=== PATIENT | male | born 1930 | race Caucasian/White ===

== ENCOUNTER 2017-12-26 12:20 | Emergency (ER) | payer OTHER ==
[~2017-12-26] VITALS: Ht 210.8 cm; Wt 83.9 kg
[~2017-12-26 12:20] MED LIST: ACIDOPHILUS1 EAC1 PO; ASA325 PO; CO Q-1030 MG PO; COREG3.125 MG PO; COUMADIN5 MG PO; DOXAZOSIN MESYLA2 MG PO; FISH OIL 1,2001 EACH PO; FUROSEMIDE40 MG PO; KAVA KAVA PO; KLOR-CON 1010 MEQ PO; LOSARTAN POTASS50 MG PO; MAGNESIUM500 MG PO; MECLIZINE HCL12.5 MG PO; MULTIVITAMIN PO; NRC7.5T PO; PEPCID20 MG PO; SUPER B COMPLE150 MG PO; VERAPAMIL ER240 M1 PO; VITAMIN B12 PO; WARFARIN SODIUM1 MG PO; WARFARIN SODIUM4 MG PO; WARFARIN SODIUM5 GM PO; [UNRECOGNIZED DRUG - OTHER] PO
--- OUTSIDE RECORDS SUMMARY | 2017-12-26 12:24 | XMS REPORT | CCD ---
Author Author [facility] Organization [facility] Address Unknown Phone Unavailable Care Team Providers Care Fish Icer Name Role Phone Clark Pete CP Allergies, Adverse Reactions, Alerts Substance Reaction Status NKDA Active Problem List Condition Effective Dates Status BPH Active Congestive heart failure Active HTN - Hypertension Active Pleural effusion Active Vital Signs Most recent to oldest [Reference Range]: 1 Height 182.88 cm (11/25/2011 22:23:00) Weight 2.585 kg (11/25/2011 22:23:00)
--- OUTSIDE RECORDS SUMMARY | 2017-12-26 12:24 | XMS REPORT | Summary of Care ---
Author Organization Unknown Address Unknown Phone Unavailable Encounter HQ Sarah_la(ROSA) [id number] Date(s): 11/15/14 - 11/15/[address] Discharge Disposition: Home Physician Attending: Sherley Fabian MD Physician_Referring: Sherley Fabian MD Vital Signs Most recent to 1 oldest [Reference Range]: Height 180.34 cm (11/15/14 9:20 AM) Weight 85 kg (11/15/14 9:20 AM) Body Mass Index 26.14 m2 (11/15/14 9:20 AM) Problem List Condition Effective Dates Status Health Status Informant BPH(Confirmed) Active Congestive heart Active failure(Confirmed) HTN - Active Hypertension(Confirm ed) Pleural Active effusion(Confirmed) Allergies, Adverse Reactions, Alerts Substance Reaction Severity Status NKDA Active Medications No data available for this section Results No data available for this section Immunizations No data available for this section Procedures No data available for this section Social History No data available for this section Assessment and Plan No data available for this section
--- OUTSIDE RECORDS SUMMARY | 2017-12-26 12:24 | XMS REPORT | CCD ---
Author Author [facility] Organization [facility] Address Unknown Phone Unavailable Care Team Providers Care Manager Credit Risk Name Role Phone Lenny Castillo CP Allergies, Adverse Reactions, Alerts Substance Reaction Status NKDA Active Problem List Condition Effective Dates Status BPH Active Congestive heart failure Active HTN - Hypertension Active Pleural effusion Active Medications Medication Instructions Start Date End Date Status Saline Flush 0.9% 5 ml, Route: IVP, Drug Form: INJ, 10/09/20112011 Discontinued PRN, PRN Line Flush, Start date: 10/09/11 22:57:00, Duration: 24 hr, Stop date: 10/10/11 22:56:00 DuoNeb inhalation 3 ml, Route: INHALATION, Drug Form: 10/10/20112011 Discontinued solution SOLN, RQID, Start date: 10/10/11 15:00:00, Duration: 30 day, Stop date: 11/09/11 11:00:00 losartan 100 mg, 2 tab, Route: PO, Drug 10/11/2011 10/11/2011 Discontinued form: TAB, Daily, Start date: 10/11/11 9:00:00, Duration: 30 day, Stop date: 11/09/11 9:00:00 hydrOXYzine pamoate 25 mg, 1 cap, Route: PO, Drug form: 10/10/201110/10 Discontinued 25 mg oral capsule CAP, Daily, PRN Anxiety, Start date: 10/10/11 12:03:00, Duration: 30 day, Stop date: 11/09/11 12:02:00 warfarin 5 mg, 1 tab, Route: PO, Drug form: 10/10/2011 10/11/2011 Discontinued TAB, Q5PM, Start date: 10/10/11 17:00:00, Duration: 30 day, Stop date: 11/08/11 17:00:00 Prinivil 5 mg, 1 tab, Route: PO, Drug form: 10/11/2011 10/10/2011 Canceled TAB, Daily, Start date: 10/11/11 9:00:00, Duration: 30 day, Stop date: 11/09/11 9:00:00 metoprolol 25 mg, 1 tab, Route: PO, Drug form: 10/11/2011 10/11/2011 Discontinued ERTAB, Daily, Start date: 10/11/11 9:00:00, Duration: 30 day, Stop date: 11/09/11 9:00:00 K-Dur 10 10 mEq, 1 tab, Route: PO, Drug 10/11/2011 10/11/2011 Discontinued form: ERTAB, Daily, Start date: 10/11/11 9:00:00, Duration: 30 day, Stop date: 11/09/11 9:00:00 Lasix 40 mg, 4 mL, Route: IV, Drug form: 10/11/2011 10/11/2011 Discontinued INJ, Daily, Start date: 10/11/11 9:00:00, Duration: 30 day, Stop date: 11/09/11 9:00:00 warfarin 5 mg oral 5 mg, 1 tab, PO, Daily, 30 tab, 10/10/2011 Ordered tablet Substitution Allowed, TAB losartan 100 mg oral 100 mg, 1 tab, PO, Daily, 30 tab, 10/10/2011 Ordered tablet Substitution Allowed, TAB levocetirizine 5 mg Substitution Allowed, Maintenance 10/10/2011 Ordered oral tablet Lasix 40 mg, Route: IVP, Drug form: INJ, 10/10/2011 10/10/2011 Completed ONCE, Priority: STAT, Start date: 10/10/11 0:46:00, Stop date: 10/10/11 0:46:00 verapamil 240 mg 240 mg, 1 cap, PO, Daily, 30 cap, 10/10/20112011 Discontinued oral capsule, Substitution Allowed extended release hydrOXYzine pamoate 25 mg, 1 cap, PO, Daily, PRN, 40 10/10/2011 Ordered 25 mg oral capsule cap, Anxiety, Substitution Allowed, CAP clonidine 0.1 mg 0.1 mg, 1 tab, PO, BID, 60 tab, 10/10/2011 Ordered oral tablet Substitution Allowed, TAB Lasix 40 mg oral 40 mg, 1 tab, PO, Daily, 30 tab, 10/11/2011 Ordered tablet Substitution Allowed, TAB Metoprolol Succinate 25 mg, 1 tab, PO, Daily, 30 tab, 10/11/2011 Ordered ER 25 mg oral Substitution Allowed, ERTAB tablet, extended release acetaminophen 650 mg, 2 tab, Route: PO, Drug 10/10/2011 10/11/2011 Discontinued form: TAB, Q4H, PRN Pain/Fever, Start date: 10/10/11 2:24:00, Duration: 30 day, Stop date: 11/09/11 2:23:00 nitroglycerin 0.4 mg 0.4 mg, 1 tab, Route: SL, Drug 10/10/20112011 Discontinued sublingual tablet form: TAB, Q5Min, PRN Chest Pain, Start date: 10/10/11 2:01:00, Duration: 30 day, Stop date: 11/09/11 2:00:00 atropine 0.5 mg, 5 mL, Route: IVP, Drug 10/10/2011 10/11/2011 Discontinued form: INJ, PRN, PRN Bradycardia, Start date: 10/10/11 2:01:00, Duration: 30 day, Stop date: 11/09/11 2:00:00 Vital Signs Most recent to oldest [Reference Range]: 1 2 3 Height 180.34 cm (10/10/2011 02:21:00) 180.34 cm (10/09/2011 20:27:00) Current Weight 89.636 kg (10/10/2011 03:43:00) Temperature Oral [96.4-99.1 DegF] 97.9 DegF (10/11/2011 12:00:00) 97.6 DegF (10/11/2011 08:00:00) 97.8 DegF (10/11/2011 04:00:00) Systolic Blood Pressure [90-140 mmHg] 143 mmHg *HI* (10/11/2011 12:00:00) 171 mmHg *HI* (10/11/2011 09:00:00) 171 mmHg *HI* (10/11/2011 08:00:00) Diastolic Blood Pressure [60-90 mmHg] 68 mmHg (10/11/2011 12:00:00) 93 mmHg *HI* (10/11/2011 09:00:00) 104 mmHg *HI* (10/11/2011 08:00:00) Respiratory Rate [14-20 BRMIN] 18 BRMIN (10/11/2011 12:00:00) 20 BRMIN (10/11/2011 08:00:00) 18 BRMIN (10/11/2011 04:00:00) Peripheral Pulse Rate [60-100 bpm] 59 bpm *LOW* (10/11/2011 12:00:00) 76 bpm (10/11/2011 09:00:00) 72 bpm (10/11/2011 08:00:00) Weight 90.483 kg (10/10/2011 02:21:00) 97.727 kg (10/09/2011 20:27:00) Results CHEMISTRY Most recent to oldest [Reference Range]: 1 2 Sodium Lvl [135-145 mEq/L] 143 mEq/L (10/11/2011 06:13:00) 142 mEq/L (10/09/2011 22:58:00) Potassium Lvl [3.5-5.1 mEq/L] 4.1 mEq/L (10/11/2011 06:13:00) 4.0 mEq/L (10/09/2011 22:58:00) Chloride Lvl [95-109 mEq/L] 108 mEq/L (10/11/2011 06:13:00) 110 mEq/L *HI* (10/09/2011 22:58:00) CO2 [24-32 mEq/L] 25 mEq/L (10/11/2011 06:13:00) 23 mEq/L *LOW* (10/09/2011 22:58:00) AGAP [10.0-20.0 mEq/L] 14.1 mEq/L (10/11/2011 06:13:00) 13.0 mEq/L (10/09/2011 22:58:00) Creatinine Lvl [0.5-1.4 mg/dL] 1.1 mg/dL (10/11/2011 06:13:00) 1.1 mg/dL (10/09/2011 22:58:00) eGFR >60 1 *NA* (10/11/2011 06:13:00) BUN [7-22 mg/dL] 16 mg/dL (10/11/2011 06:13:00) 16 mg/dL (10/09/2011 22:58:00) B/C Ratio [6-25] 15 (10/09/2011 22:58:00) Glucose Lvl 90 mg/dL 2 *NA* (10/11/2011 06:13:00) 89 mg/dL 3 *NA* (10/09/2011 22:58:00) Total Protein [6.4-8.4 g/dL] 6.2 g/dL *LOW* (10/09/2011 22:58:00) Albumin Lvl [3.5-5.0 g/dL] 3.4 g/dL *LOW* (10/09/2011 22:58:00) Globulin [2.0-4.0 g/dL] 2.8 g/dL (10/09/2011 22:58:00) A/G Ratio [0.7-1.6] 1.2 (10/09/2011 22:58:00) Calcium Lvl [8.5-10.5 mg/dL] 8.8 mg/dL (10/11/2011 06:13:00) 8.5 mg/dL (10/09/2011 22:58:00) ALT [0-65 U/L] 64 U/L (10/09/2011 22:58:00) AST [0-37 U/L] 33 U/L (10/09/2011 22:58:00) Alk Phos [39-136 U/L] 80 U/L (10/09/2011 22:58:00) Bili Total [0.2-1.3 mg/dL] 0.9 mg/dL (10/09/2011 22:58:00) Total CK [12-191 U/L] 97 U/L (10/09/2011 22:58:00) CK MB [0.5-3.6 ng/mL] 1.5 ng/mL (10/09/2011 22:58:00) CK MB Index [0.0-2.5] 1.5 (10/09/2011 22:58:00) Troponin-I [0.00-0.40 ng/mL] <0.02 ng/mL (10/09/2011 22:58:00) BNP [<=100 pg/mL] 698 pg/mL 4 *HI* (10/11/2011 06:13:00) 681 pg/mL 5 *HI* (10/09/2011 22:58:00) 1Result Comment: Expected eGFR for >20 yr. age group: >=60 ml/min/1.73 sq m The eGFR calculation is not valid in or for persons < 18 years of age. From National Kidney Disease Education Program (NKDEP) 2Interpretive Data: Reference Ranges : 0 - 7 days : 41 - 90 mg/dL7 days - 150 yrs : 70 - 99 mg/dL (fasting), based on the clinical recommendations of the [place] [employer]. 3Interpretive Data: Reference Ranges : 0 - 7 days : 41 - 90 mg/dL7 days - 150 yrs : 70 - 99 mg/dL (fasting), based on the clinical recommendations of the [place] [employer]. 4Interpretive Data: Elevated results are in line with increasing severity of congestive heart failure. Minor elevations between 100 and 300 may be seen with Myocardial Ischemia, Sodium retaining drugs, and compensated/treated heart failure. 5Interpretive Data: Elevated results are in line with increasing severity of congestive heart failure. Minor elevations between 100 and 300 may be seen with Myocardial Ischemia, Sodium retaining drugs, and compensated/treated heart failure. HEMATOLOGY Most recent to oldest [Reference Range]: 1 2 WBC [3.7-10.4 K/CMM] 6.6 K/CMM (10/11/2011 06:13:00) 5.1 K/CMM (10/09/2011 22:58:00) RBC [4.70-6.10 M/CMM] 4.41 M/CMM *LOW* (10/11/2011 06:13:00) 3.98 M/CMM *LOW* (10/09/2011 22:58:00) Hgb [14.0-18.0 g/dL] 13.7 g/dL *LOW* (10/11/2011 06:13:00) 12.2 g/dL *LOW* (10/09/2011 22:58:00) Hct [42.0-54.0 %] 40.4 % *LOW* (10/11/2011 06:13:00) 36.5 % *LOW* (10/09/2011 22:58:00) MCV [80.0-94.0 fL] 91.7 fL (10/11/2011 06:13:00) 91.8 fL (10/09/2011 22:58:00) MCH [27.0-31.0 pg] 31.1 pg *HI* (10/11/2011 06:13:00) 30.7 pg (10/09/2011 22:58:00) MCHC [32.0-36.0 g/dL] 33.9 g/dL (10/11/2011 06:13:00) 33.4 g/dL (10/09/2011 22:58:00) RDW [11.5-14.5 %] 13.6 % (10/11/2011 06:13:00) 13.4 % (10/09/2011 22:58:00) Platelet [133-450 K/CMM] 135 K/CMM (10/11/2011 06:13:00) 113 K/CMM *LOW* (10/09/2011 22:58:00) MPV [7.4-10.4 fL] 10.4 fL (10/11/2011 06:13:00) 10.2 fL (10/09/2011 22:58:00) Segs [45.0-75.0 %] 56.6 % (10/11/2011 06:13:00) 55.4 % (10/09/2011 22:58:00) Lymphocytes [20.0-40.0 %] 34.7 % (10/11/2011 06:13:00) 33.1 % (10/09/2011 22:58:00) Monocytes [2.0-12.0 %] 5.7 % (10/11/2011 06:13:00) 7.3 % (10/09/2011 22:58:00) Eosinophils [0.0-4.0 %] 2.7 % (10/11/2011 06:13:00) 3.7 % (10/09/2011 22:58:00) Basophils [0.0-1.0 %] 0.3 % (10/11/2011 06:13:00) 0.5 % (10/09/2011 22:58:00) Segs-Bands # [1.5-8.1 K/CMM] 3.7 K/CMM (10/11/2011 06:13:00) 2.8 K/CMM (10/09/2011 22:58:00) Lymphocytes # [1.0-5.5 K/CMM] 2.3 K/CMM (10/11/2011 06:13:00) 1.7 K/CMM (10/09/2011 22:58:00) Monocytes # [0.0-0.8 K/CMM] 0.4 K/CMM (10/11/2011 06:13:00) 0.4 K/CMM (10/09/2011 22:58:00) Eosinophils # [0.0-0.5 K/CMM] 0.2 K/CMM (10/11/2011 06:13:00) 0.2 K/CMM (10/09/2011 22:58:00) Basophils # [0.0-0.2 K/CMM] 0.0 K/CMM (10/11/2011 06:13:00) 0.0 K/CMM (10/09/2011 22:58:00) PT [12.0-14.7 seconds] 23.6 seconds *HI* (10/11/2011 06:13:00) 22.4 seconds *HI* (10/09/2011 22:58:00) INR [0.85-1.17] 2.13 6 *HI* (10/11/2011 06:13:00) 1.99 7 *HI* (10/09/2011 22:58:00) PTT [22.9-35.8 seconds] 32.8 seconds 8 (10/09/2011 22:58:00) 6Interpretive Data: RECOMMENDED RANGES FOR PROTIME INR: 2.0-3.0 for most medical and surgical thromboembolic states. 2.5-3.5 for artificial heart valves and recurrent embolism.INR SHOULD BE USED ONLY FOR PATIENTS ON STABLE ANTICOAGULANT THERAPY. 7Interpretive Data: RECOMMENDED RANGES FOR PROTIME INR: 2.0-3.0 for most medical and surgical thromboembolic states. 2.5-3.5 for artificial heart valves and recurrent embolism.INR SHOULD BE USED ONLY FOR PATIENTS ON STABLE ANTICOAGULANT THERAPY. 8Interpretive Data: Heparin Therapeutic Range: 57 - 92 Seconds
--- OUTSIDE RECORDS SUMMARY | 2017-12-26 12:24 | XMS REPORT | Summary of Care ---
Author Author [facility] Organization [facility] Address Unknown Phone Unavailable Encounter JOAQUÍN Rodney(ROSA) [id number] Date(s): 04/15/15 - 04/15/15 [facility] [address] [place] [address] Discharge Disposition: Home Attending Physician: Luke Back MD Referring Physician: Luke Back MD Vital Signs Most recent to 1 oldest [Reference Range]: Height 180.34 cm (04/15/15 12:23 PM) Most recent to 1 oldest [Reference Range]: Weight 87.727 kg (04/15/15 12:23 PM) Most recent to 1 oldest [Reference Range]: Body Mass Index 26.97 m2 (04/15/15 12:23 PM) Problem List Condition Effective Dates Status Health Status Informant AF - Atrial Resolved fibrillation(Confirm ed) BPH(Confirmed) Active Cardiac Resolved arrest(Confirmed) CHF (congestive Resolved heart failure)(Confirmed) Congestive heart Active failure(Confirmed) Diastolic heart Resolved failure(Confirmed) HTN - Active Hypertension(Confirm ed) Pleural Active effusion(Confirmed) VT - Ventricular Resolved tachycardia(Confirme d) Allergies, Adverse Reactions, Alerts Substance Reaction Severity Status NKDA Active Medications No data available for this section Results No data available for this section Immunizations No data available for this section Procedures No data available for this section Social History Social History Type Response Smoking Status Never smoker; Exposure to Tobacco Smoke None; Cigarette Smoking Last 365 Days Unable to obtain; Reg Smoking Cessation Counseling No Assessment and Plan No data available for this section
--- OUTSIDE RECORDS SUMMARY | 2017-12-26 12:24 | XMS REPORT | Summary of Care ---
Author Author [facility] Organization [facility] Address Unknown Phone Unavailable Encounter JOAQUÍN Rodney(ROSA) [id number] Date(s): 02/11/15 - 02/11/[address] Discharge Disposition: Home Attending Physician: Riley Rowe MD Referring Physician: Riley Rowe MD Vital Signs Most recent to 1 oldest [Reference Range]: Height 182.88 cm (02/11/15 12:54 PM) Most recent to 1 oldest [Reference Range]: Weight 86.364 kg (02/11/15 12:54 PM) Most recent to 1 oldest [Reference Range]: Body Mass Index 25.82 m2 (02/11/15 12:54 PM) Problem List Condition Effective Dates Status Health Status Informant BPH(Confirmed) Active Congestive heart Active failure(Confirmed) HTN - Active Hypertension(Confirm ed) Pleural Active effusion(Confirmed) Allergies, Adverse Reactions, Alerts Substance Reaction Severity Status NKDA Active Medications No data available for this section Results HEMATOLOGY Most recent to 1 oldest [Reference Range]: PT [12.0-14.7 39.3 seconds seconds] *HI* (02/11/15 1:35 PM) INR [0.85-1.17] 3.83 *HI* (02/11/15 1:35 PM) Immunizations No data available for this section Procedures No data available for this section Social History No data available for this section Assessment and Plan No data available for this section
--- OUTSIDE RECORDS SUMMARY | 2017-12-26 12:24 | XMS REPORT | Summary of Care ---
Author Author [facility] Organization [facility] Address Unknown Phone Unavailable Encounter JOAQUÍN Rdoney(ROSA) [id number] Date(s): 05/12/16 - 05/12/16 [facility] [address] Discharge Disposition: Home or Self Care Attending Physician: Riley Rowe MD Referring Physician: Riley Rowe MD Vital Signs Most recent to 1 oldest [Reference Range]: Height 182.88 cm (05/12/16 8:59 AM) Weight 87.273 kg (05/12/16 8:59 AM) Body Mass Index 26.09 m2 (05/12/16 8:59 AM) Problem List Condition Effective Dates Status [...]
--- OUTSIDE RECORDS SUMMARY | 2017-12-26 12:24 | XMS REPORT | Summary of Care ---
Author Author [facility] Address Unknown Phone Unavailable Encounter HQ Ronel(FIN) [id number] Date(s): 08/27/16 - 08/27/16 [facility] [address], [address] [place] [phone] Discharge Disposition: Home or Self Care Attending Physician: Tayler Muro MD Vital Signs No data available for this section Problem List Condition Effective Dates Status Health Status Informant AF - Atrial Active fibrillation(Confirm ed) BPH(Confirmed) Active Cardiac Resolved arrest(Confirmed) CHF (congestive Resolved heart failure)(Confirmed) Congestive heart Active failure(Confirmed) Diastolic heart Resolved failure(Confirmed) HTN - Active Hypertension(Confirm ed) Pleural Active effusion(Confirmed) VT - Ventricular Resolved tachycardia(Confirme d) Allergies, Adverse Reactions, Alerts Substance Reaction Severity Status NKDA Active Medications No data available for this section Results No data available for this section Immunizations Given and Recorded Vaccine Date Status Refusal Reason pneumococcal 13-valent vaccine 06/11/16 Given Procedures Procedure Date Related Diagnosis Body Site TURP - Transurethral resection of prostate Social History Social History Type Response Smoking Status Never smoker; Exposure to Tobacco Smoke None; Cigarette Smoking Last 365 Days Unable to obtain; Reg Smoking Cessation Counseling No Assessment and Plan No data available for this section
--- OUTSIDE RECORDS SUMMARY | 2017-12-26 12:24 | XMS REPORT | Summary of Care ---
Author Author [facility] Outpatient Imaging [facility] Outpatient Imaging [facility] Address Unknown Phone Unavailable Encounter HQ Ronel(FIN) [id number] Date(s): 02/09/17 - 02/09/17 [facility] Outpatient Imaging [facility] [address] [address] [place] [phone] Discharge Disposition: Home or Self Care Attending [...]
--- OUTSIDE RECORDS SUMMARY | 2017-12-26 12:24 | XMS REPORT | Summary of Care ---
Author Author [facility] Organization [facility] Address Unknown Phone Unavailable Encounter JOAQUÍN Rodney(ROSA) [id number] Date(s): 02/25/15 - 02/26/15 [facility] [address] [employer] provided by [facility] [place] [address]- Discharge Disposition: Home Attending Physician: Luke Back MD Admitting Physician: Luke Back MD Referring Physician: Luke Back MD Vital Signs 1 2 3 Most recent to oldest [Reference Range]: 180.34 cm (02/25/15 7:50 AM) Height 1 2 3 Most recent to oldest [Reference Range]: 97.3 DegF (02/26/15 12:08 PM) 97.9 DegF (02/26/15 8:23 AM) 97.4 DegF (02/26/15 4:05 AM) Temperature Oral [96.4-99.1 DegF] 1 2 3 Most recent to oldest [Reference Range]: 143/72 mmHg *HI* (02/26/15 6:00 PM) 153/75 mmHg *HI* (02/26/15 4:00 PM) 123/67 mmHg (02/26/15 2:00 PM) Blood Pressure [90-140/60-90 mmHg] 1 2 3 Most recent to oldest [Reference Range]: 9 BRMIN *LOW* (02/25/15 8:00 AM) Respiratory Rate [14-20 BRMIN] 1 2 3 Most recent to oldest [Reference Range]: 86.818 kg (02/25/15 7:50 AM) Weight 1 2 3 Most recent to oldest [Reference Range]: 26.69 m2 (02/25/15 7:50 AM) Body Mass Index Problem List Condition Effective Dates Status Health Status Informant AF - Atrial Resolved fibrillation(Confirm ed) BPH(Confirmed) Active Cardiac Resolved arrest(Confirmed) CHF (congestive Resolved heart failure)(Confirmed) Congestive heart Active failure(Confirmed) Diastolic heart Resolved failure(Confirmed) HTN - Active Hypertension(Confirm ed) Pleural Active effusion(Confirmed) VT - Ventricular Resolved tachycardia(Confirme d) Allergies, Adverse Reactions, Alerts Substance Reaction Severity Status NKDA Active Medications Acidophilus Extra Strength oral capsule 1 cap, PO, Daily, 0 Refill(s) Start Date: 02/25/15 Status: Ordered AMIODarone 200 mg, 1 tab, Route: PO, Drug form: TAB, Daily, Dosing Weight 86.818, kg, Start date: 02/26/15 9:00:00, Duration: 30 day, Stop date: 03/27/15 9:00:00 Notes: (Same as: Cordarone) Start Date: 02/26/15 Stop Date: 02/26/15 Status: Discontinued AMIODarone 200 mg oral tablet 200 mg=1 tab, PO, BID, # 180 tab, 0 Refill(s) Start Date: 02/25/15 Status: Ordered amLODIPine 5 mg, 1 tab, Route: PO, Drug form: TAB, Daily, Dosing Weight 86.818, kg, Start date: 02/25/15 16:03:00, Duration: 30 day, Stop date: 03/27/15 9:00:00 Notes: (Same as: Norvasc) Start Date: 02/25/15 Stop Date: 02/26/15 Status: Discontinued amLODIPine 5 mg oral tablet 5 mg=1 tab, PO, Daily, # 90 tab, 1 Refill(s) Start Date: 02/25/15 Status: Ordered aspirin 81 mg, 1 tab, Route: PO, Drug form: ECTAB, Daily, Dosing Weight 86.818, kg, Start date: 02/26/15 9:00:00, Duration: 30 day, Stop date: 03/27/15 9:00:00 Notes: Do not crush or chew.(Same As: Ecotrin) Start Date: 02/26/15 Stop Date: 02/26/15 Status: Discontinued aspirin 81 mg tablet, enteric coated 81 mg=1 tab, PO, Daily, # 30 tab, 1 Refill(s) Start Date: 02/26/15 Stop Date: 04/27/15 Status: Ordered B-12 1000 mcg sublingual tablet 1,000 microgram=1 tab, SL, Daily, 0 Refill(s) Start Date: 02/25/15 Status: Ordered colchicine 0.6 mg oral tablet 0.6 mg=1 tab, PO, BID, X 7 day, # 14 tab, 0 Refill(s) Start Date: 02/26/15 Stop Date: 03/05/15 Status: Ordered colchicine 0.6 mg oral tablet 0.6 mg, 1 tab, Route: PO, Drug form: TAB, BID, Dosing Weight 86.818, kg, Priority: NOW, Start date: 02/25/15 19:05:00, Duration: 30 day, Stop date: 03/27 17:00:00 Start Date: 02/25/15 Stop Date: 02/26/15 Status: Discontinued Coreg 6.25 mg, Route: PO, Drug form: TAB, BID, Dosing Weight 86.818, kg, Start date: 02/25/15 17:00:00, Duration: 30 day, Stop date: 03/27/15 9:00:00 Start Date: 02/25/15 Stop Date: 02/25/15 Status: Canceled Coreg 6.25 mg, 1 tab, Route: PO, Drug form: TAB, Q12H, Dosing Weight 86.818, kg, Start date: 02/25/15 21:00:00, Duration: 30 day, Stop date: 03/27/15 9:00:00 Notes: Give with food. (Same As: Coreg) Start Date: 02/25/15 Stop Date: 02/26/15 Status: Discontinued Coreg 6.25 mg oral tablet 6.25 mg=1 tab, PO, BID, # 60 tab, 1 Refill(s) Start Date: 02/26/15 Stop Date: 04/27/15 Status: Ordered Coreg 6.25 mg oral tablet 6.25 mg=1 tab, PO, BID, # 180 tab, 3 Refill(s) Start Date: 02/25/15 Stop Date: 02/26/15 Status: Discontinued Coumadin 5 mg, 1 tab, Route: PO, Drug form: TAB, Q5PM, Dosing Weight 86.818, kg, Start date: 02/25/15 17:00:00, Duration: 1 doses or times, Stop date: 02/25/15 17:00: 00 Notes: Nurse to ensure documentation of patient education per anticoagulation policy.Avoid large intake of vitamin-K containing foods diet.(Same As: Coumadin) Start Date: 02/25/15 Stop Date: 02/25/15 Status: Completed Coumadin 5 mg oral tablet 5 mg=1 tab, PO, Daily, # 30 tab, 0 Refill(s) Start Date: 02/26/15 Status: Ordered famotidine 20 mg, 1 tab, Route: PO, Drug form: TAB, BID, Dosing Weight 86.818, kg, Start date: 02/25/15 17:00:00, Duration: 30 day, Stop date: 03/27/15 9:00:00 Notes: (Same as: Pepcid) Start Date: 02/25/15 Stop Date: 02/26/15 Status: Discontinued furosemide 40 mg oral tablet 40 mg, 1 tab, Route: PO, Drug form: TAB, Daily, Dosing Weight 86.818, kg, Start date: 02/26/15 9:00:00, Duration: 30 day, Stop date: 03/27/15 9:00:00 Notes: (Same as: Lasix) May cause GI upset. Give with food or milk. Start Date: 02/26/15 Stop Date: 02/26/15 Status: Discontinued furosemide 40 mg oral tablet 40 mg=1 tab, PO, Daily, # 90 tab, 1 Refill(s) Start Date: 02/25/15 Status: Ordered GI cocktail 30 mL, Route: PO, Drug Form: SUSP, ONCE, Start date: 02/25/15 19:16:00, Stop date: 02/25/15 19:16:00 Notes: G.I. Cocktail=antacid with simethicone 22.5 mL - lidocaine viscous 7.5 mL Start Date: 02/25/15 Stop Date: 02/25/15 Status: Completed Magic Mouth Wash 460 (Maalox/Benadryl/Carafate/Lidocaine) Route: PO, Dosing Weight 86.818, kg, ONCE, STAT, Start date: 02/25/15 19:06:00, Stop date: 02/25/15 19:06:00 Start Date: 02/25/15 Stop Date: 02/25/15 Status: Deleted magnesium oxide 400 mg, 1 tab, Route: PO, Drug form: TAB, Daily, Dosing Weight 86.818, kg, Start date: 02/26/15 9:00:00, Duration: 30 day, Stop date: 03/27/15 9:00:00 Notes: (Same as: Mag-Ox 400)Magnesium oxide [id number] elemental magnesiumDose= ____mg magnesium oxide (___mg elemental magnesium) Start Date: 02/26/15 Stop Date: 02/26/15 Status: Discontinued magnesium oxide 500 mg oral tablet 500 mg=1 tab, PO, Daily, # 14 tab, 0 Refill(s) Start Date: 02/25/15 Stop Date: 03/11/15 Status: Ordered meclizine 25 mg oral tablet 25 mg=1 tab, PO, TID, PRN for dizziness, # 60 tab, 0 Refill(s) Start Date: 02/25/15 Stop Date: 03/17/15 Status: Ordered melatonin 3 mg oral tablet 3 mg, 1 tab, Route: PO, Drug Form: TAB, Dosing Weight 86.818, kg, Bedtime, Start date: 02/26/15 0:30:00, Duration: 30 day, Stop date: 03/27/15 21:00:00 Notes: (Same as: Melatonin) Start Date: 02/26/15 Stop Date: 02/26/15 Status: Discontinued omega-3 polyunsaturated fatty acids 1000 mg oral capsule 1,000 mg=1 cap, PO, TID, 0 Refill(s) Start Date: 02/25/15 Status: Ordered Pepcid AC Maximum Strength 20 mg oral tablet 20 mg=1 tab, PO, BID, # 180 tab, 0 Refill(s) Start Date: 02/25/15 Status: Ordered potassium chloride 10 mEq oral tablet, extended release 10 mEq=1 tab, PO, BID, # 20 tab, 0 Refill(s) Start Date: 02/25/15 Status: Ordered Sodium Chloride 0.9% (Bolus) IV 250 mL, Infuse Over: 1 hr, Route: IV, ONCE, Priority: Routine, Dosing Weight 86.364 kg, Start date: 02/25/15 7:49:00, Duration: 1 doses or times, Stop date: 02/25/15 7:49:00 Start Date: 02/25/15 Stop Date: 02/25/15 Status: Completed Sodium Chloride 0.9% IV 750 mL 750 mL, Rate: 75 ml/hr, Infuse over: 10 hr, Route: IV, Dosing Weight 86.364 kg, Total Volume: 750, Start date: 02/25/15 7:49:00, Duration: 1 doses or times, Stop date: 02/25/15 17:48:00 Start Date: 02/25/15 Stop Date: 02/25/15 Status: Completed tramadol 50 mg oral tablet 50 mg, 1 tab, Route: PO, Drug form: TAB, Q6H, Dosing Weight 86.818, kg, PRN Pain 1-3/Temp > 100.4 F, Start date: 02/25/15 16:04:00, Duration: 30 day, Stop date: 03/27/15 16:03:00 Notes: Not to exceed 400mg/day. (Same As: Ultram) Start Date: 02/25/15 Stop Date: 02/26/15 Status: Discontinued tramadol 50 mg oral tablet 50 mg=1 tab, PO, Q6H, PRN Pain, # 40 tab, 0 Refill(s) Start Date: 02/25/15 Stop Date: 03/07/15 Status: Ordered Vitamin D3 2000 intl units oral capsule 2,000 IntlUnit=1 cap, PO, Daily, # 100 cap, 3 Refill(s) Start Date: 02/25/15 Status: Ordered Voltaren Topical 1% topical gel 1 appl, TOP, QID, # 100 gm, 0 Refill(s) Start Date: 02/25/15 Status: Ordered warfarin 1 mg oral tablet 1 mg=1 tab, PO, Daily, 4mg daily, in addition to 3mg M--Th-Sat, 2 mg Tue-- Sun, # 90 tab, 0 Refill(s) Special Instructions: 4mg daily, in addition to 3mg M-Tu-Th-Sat, 2 mg Tue--Sun Start Date: 02/25/15 Status: Ordered Results BLOOD BANK RESULTS 1 2 3 Most recent to oldest [Reference Range]: B POS *Unknown* (02/25/15 8:10 AM) ABO/Rh Negative (02/25/15 8:10 AM) Antibody Scrn Product available (02/25/15 7:49 AM) RBC product ELECTROLYTES 1 2 3 Most recent to oldest [Reference Range]: 140 mEq/L (02/26/15 2:59 AM) 144 mEq/L (02/25/15 4:29 PM) 143 mEq/L (02/25/15 8:10 AM) Sodium Lvl [135-145 mEq/L] 4.6 mEq/L (02/26/15 2:59 AM) 3.9 mEq/L (02/25/15 4:29 PM) 4.0 mEq/L (02/25/15 8:10 AM) Potassium Lvl [3.5-5.1 mEq/L] 107 mEq/L (02/26/15 2:59 AM) 108 mEq/L (02/25/15 4:29 PM) 106 mEq/L (02/25/15 8:10 AM) Chloride Lvl [95-109 mEq/L] 24 mEq/L (02/26/15 2:59 AM) 28 mEq/L (02/25/15 4:29 PM) 30 mEq/L (02/25/15 8:10 AM) CO2 [24-32 mEq/L] 13.6 mEq/L (02/26/15 2:59 AM) 11.9 mEq/L (02/25/15 4:29 PM) 11.0 mEq/L (02/25/15 8:10 AM) AGAP [10.0-20.0 mEq/L] CHEM PANEL 1 2 3 Most recent to oldest [Reference Range]: 1.1 mg/dL (02/26/15 2:59 AM) 1.2 mg/dL (02/25/15 4:29 PM) 1.2 mg/dL (02/25/15 8:10 AM) Creatinine Lvl [0.5-1.4 mg/dL] 62 mL/min/1.73m2 1 *NA* (02/26/15 2:59 AM) 56 mL/min/1.73m2 2 *NA* (02/25/15 4:29 PM) 56 mL/min/1.73m2 3 *NA* (02/25/15 8:10 AM) eGFR 17 mg/dL (02/26/15 2:59 AM) 16 mg/dL (02/25/15 4:29 PM) 19 mg/dL (02/25/15 8:10 AM) BUN [7-22 mg/dL] 16 (02/25/15 8:10 AM) B/C Ratio [6-25] 80 mg/dL (02/26/15 2:59 AM) 88 mg/dL (02/25/15 4:29 PM) 102 mg/dL *HI* (02/25/15 8:10 AM) Glucose Lvl [70-99 mg/dL] 6.8 g/dL (02/25/15 8:10 AM) Total Protein [6.4-8.4 g/dL] 3.8 g/dL (02/25/15 8:10 AM) Albumin Lvl [3.5-5.0 g/dL] 3.0 g/dL (02/25/15 8:10 AM) Globulin [2.0-4.0 g/dL] 1.3 (02/25/15 8:10 AM) A/G Ratio [0.7-1.6] 8.1 mg/dL *LOW* (02/26/15 2:59 AM) 8.5 mg/dL (02/25/15 4:29 PM) 8.7 mg/dL (02/25/15 8:10 AM) Calcium Lvl [8.5-10.5 mg/dL] 26 unit/L (02/25/15 8:10 AM) ALT [0-65 unit/L] 15 unit/L (02/25/15 8:10 AM) AST [0-37 unit/L] 87 unit/L (02/25/15 8:10 AM) Alk Phos [39-136 unit/L] 1.1 mg/dL (02/25/15 8:10 AM) Bili Total [0.2-1.3 mg/dL] 1Result Comment: The eGFR is calculated using the CKD-EPI formula. In most young , healthy individuals the eGFR will be >90 mL/min/1.73m2. The eGFR declines with age. An eGFR of 60-89 may be normal in some populations, particularly the elderly, for whom the CKD-EPI formula has not been extensively validated. Use of the eGFR is not recommended in the following populations: Individuals with unstable creatinine concentrations, including patients and those with serious co-morbid conditions. Patients with extremes in muscle mass or diet. The data above are obtained from the National Kidney Disease Education Program ( NKDEP) which additionally recommends that when the eGFR is used in patients with extremes of body mass index for purposes of drug dosing, the eGFR should be multiplied by the estimated BMI. 2Result Comment: The eGFR is calculated using the CKD-EPI formula. In most young , healthy individuals the eGFR will be >90 mL/min/1.73m2. The eGFR declines with age. An eGFR of 60-89 may be normal in some populations, particularly the elderly, for whom the CKD-EPI formula has not been extensively validated. Use of the eGFR is not recommended in the following populations: Individuals with unstable creatinine concentrations, including patients and those with serious co-morbid conditions. Patients with extremes in muscle mass or diet. The data above are obtained from the National Kidney Disease Education Program ( NKDEP) which additionally recommends that when the eGFR is used in patients with extremes of body mass index for purposes of drug dosing, the eGFR should be multiplied by the estimated BMI. 3Result Comment: The eGFR is calculated using the CKD-EPI formula. In most young , healthy individuals the eGFR will be >90 mL/min/1.73m2. The eGFR declines with age. An eGFR of 60-89 may be normal in some populations, particularly the elderly, for whom the CKD-EPI formula has not been extensively validated. Use of the eGFR is not recommended in the following populations: Individuals with unstable creatinine concentrations, including patients and those with serious co-morbid conditions. Patients with extremes in muscle mass or diet. The data above are obtained from the National Kidney Disease Education Program ( NKDEP) which additionally recommends that when the eGFR is used in patients with extremes of body mass index for purposes of drug dosing, the eGFR should be multiplied by the estimated BMI. HEMATOLOGY 1 2 3 Most recent to oldest [Reference Range]: 8.1 K/CMM (02/26/15 2:59 AM) 8.8 K/CMM (02/25/15 4:29 PM) 7.1 K/CMM (02/25/15 8:10 AM) WBC [3.7-10.4 K/CMM] 4.29 M/CMM *LOW* (02/26/15 2:59 AM) 4.73 M/CMM (02/25/15 4:29 PM) 4.70 M/CMM (02/25/15 8:10 AM) RBC [4.70-6.10 M/CMM] 12.5 g/dL *LOW* (02/26/15 2:59 AM) 14.1 g/dL (02/25/15 4:29 PM) 13.8 g/dL *LOW* (02/25/15 8:10 AM) Hgb [14.0-18.0 g/dL] 38.0 % *LOW* (02/26/15 2:59 AM) 42.7 % (02/25/15 4:29 PM) 42.0 % (02/25/15 8:10 AM) Hct [42.0-54.0 %] 88.6 fL (02/26/15 2:59 AM) 90.1 fL (02/25/15 4:29 PM) 89.4 fL (02/25/15 8:10 AM) MCV [80.0-94.0 fL] 29.2 pg (02/26/15 2:59 AM) 29.7 pg (02/25/15 4:29 PM) 29.3 pg (02/25/15 8:10 AM) MCH [27.0-31.0 pg] 32.9 g/dL (02/26/15 2:59 AM) 33.0 g/dL (02/25/15 4:29 PM) 32.7 g/dL (02/25/15 8:10 AM) MCHC [32.0-36.0 g/dL] 16.0 % *HI* (02/26/15 2:59 AM) 15.9 % *HI* (02/25/15 4:29 PM) 16.2 % *HI* (02/25/15 8:10 AM) RDW [11.5-14.5 %] 110 K/CMM *LOW* (02/26/15 2:59 AM) 119 K/CMM *LOW* (02/25/15 4:29 PM) 118 K/CMM *LOW* (02/25/15 8:10 AM) Platelet [133-450 K/CMM] 10.0 fL (02/26/15 2:59 AM) 9.8 fL (02/25/15 4:29 PM) 9.4 fL (02/25/15 8:10 AM) MPV [7.4-10.4 fL] 68.7 % (02/26/15 2:59 AM) 67.8 % (02/25/15 4:29 PM) 66.0 % (02/25/15 8:10 AM) Segs [45.0-75.0 %] 20.9 % (02/26/15 2:59 AM) 22.9 % (02/25/15 4:29 PM) 23.7 % (02/25/15 8:10 AM) Lymphocytes [20.0-40.0 %] 8.6 % (02/26/15 2:59 AM) 7.2 % (02/25/15 4:29 PM) 7.1 % (02/25/15 8:10 AM) Monocytes [2.0-12.0 %] 1.3 % (02/26/15 2:59 AM) 1.3 % (02/25/15 4:29 PM) 2.1 % (02/25/15 8:10 AM) Eosinophils [0.0-4.0 %] 0.5 % (02/26/15 2:59 AM) 0.8 % (02/25/15 4:29 PM) 1.1 % *HI* (02/25/15 8:10 AM) Basophils [0.0-1.0 %] 5.6 K/CMM (02/26/15 2:59 AM) 5.9 K/CMM (02/25/15 4:29 PM) 4.7 K/CMM (02/25/15 8:10 AM) Segs-Bands # [1.5-8.1 K/CMM] 1.7 K/CMM (02/26/15 2:59 AM) 2.0 K/CMM (02/25/15 4:29 PM) 1.7 K/CMM (02/25/15 8:10 AM) Lymphocytes # [1.0-5.5 K/CMM] 0.7 K/CMM (02/26/15 2:59 AM) 0.6 K/CMM (02/25/15 4:29 PM) 0.5 K/CMM (02/25/15 8:10 AM) Monocytes # [0.0-0.8 K/CMM] 0.1 K/CMM (02/26/15 2:59 AM) 0.1 K/CMM (02/25/15 4:29 PM) 0.2 K/CMM (02/25/15 8:10 AM) Eosinophils # [0.0-0.5 K/CMM] 0.1 K/CMM (02/25/15 4:29 PM) 0.1 K/CMM (02/25/15 8:10 AM) Basophils # [0.0-0.2 K/CMM] 15.5 seconds *HI* (02/26/15 2:59 AM) 14.8 seconds *HI* (02/25/15 8:10 AM) PT [12.0-14.7 seconds] 1.22 *HI* (02/26/15 2:59 AM) 1.15 (02/25/15 8:10 AM) INR [0.85-1.17] 30.3 seconds (02/26/15 2:59 AM) 28.3 seconds (02/25/15 8:10 AM) PTT [22.9-35.8 seconds] Immunizations No data available for this section Procedures No data available for this section Social History Social History Type Response Smoking Status Never smoker; Exposure to Tobacco Smoke None; Cigarette Smoking Last 365 Days Unable to obtain; Reg Smoking Cessation Counseling No Assessment and Plan Extracted from: Title: Clinical Document Author: Yao Latif MD Date: 02/26/15 Patient: SOFIYA TORRES Age: 84 years Sex: Male : 1930 Associated Diagnoses: None Author: Yao Latif MD Subjective Mr. Torres complaining of pleuritic left sided chest discomfort post procedure. The pain has minimized compared to yesterday afternoon. He was treated with colchicine 0.6 mg po bid. CXR post operatively with no evidence of infiltration or pneumothorax. Denies shortness of breath or palpitations. Figure of 8 sutures and [place] catheter removed this AM. Coumadin 5 mg po given. Health Status Allergies: Allergic Reactions (All) Severity Not Documented NKDA- No reactions were documented. Problem list: All Problems BPH / SNOMED CT 204969712 / Confirmed Congestive heart failure / SNOMED CT 58634674 / Confirmed HTN - Hypertension / SNOMED CT 5781710256 / Confirmed Pleural effusion / SNOMED CT 28894607 / Confirmed Objective Meds Scheduled Meds (9):AMIODarone, amLODIPine, aspirin, carvedilol (Coreg), colchicine (colchicine 0.6 mg oral tablet), famotidine, furosemide (furosemide 40 mg oral tablet), magnesium oxide, melatonin (melatonin 3 mg oral tablet) Unscheduled Meds: None PRN Meds (1):tramadol (tramadol 50 mg oral tablet) One Time Meds (3):(Completed) GI cocktail, (Completed) Sodium Chloride 0.9% IV ( Sodium Chloride 0.9% (Bolus) IV), (Deleted) magic mouth wash (Magic Mouth Wash 460 (Maalox/Benadryl/Carafate/Lidocaine)) Continuous Infusions: None I&O Input/Output RecordInOutBal 0424hr Tot 955 [id number] 0324hr Tot 0 0 0 VS/Measurements Measurements from flowsheet : Measurements 02/25/2015 07:50 Heparin Dosing Weight (kg) 86.82 02/25/2015 07:50 Height 180.34 cm Height Collection Method Stated Weight 86.818 kg Dosing Weight Difference Percent 0.526 % Dosing Weight Collection Method Measured Body Surface Area 2.0854 m2 Body Mass Index 26.69 m2 , Vital Signs (last 24 hrs) Last Charted Temp Oral97.4 DegF (FEB 26 04:05) Heart Rate Kehsko42 bpm (FEB 26 04:05) Resp Rate L 9BRMIN (FEB 25 08:00) ZTL815 mmHg (FEB 26 04:05) DBP72 mmHg (FEB 26 04:05) Jcugzw20.818 kg (FEB 25:50) Gqljjv953.34 cm (FEB 25 07:50) BMI26.69 (FEB 25 07:50) General: Alert and oriented. Eye: Pupils are equal, round and reactive to light. HENT: Normocephalic. Neck: Supple. Respiratory: Lungs are clear to auscultation, Respirations are non-labored. Cardiovascular: Normal rate, Regular rhythm, Good pulses equal in all extremities, No edema. Gastrointestinal: Soft. Genitourinary: No costovertebral angle tenderness. Lymphatics: No lymphadenopathy neck, axilla, groin. Musculoskeletal Normal range of motion. Integumentary: Warm. Bilateral groin sites clean. No evidence of hematoma, psuedoaneurysm or diminished vascular flow to the distal lower extremities. Neurologic: Alert, Oriented, Normal sensory, Normal motor function, Cranial Nerves II-XII are grossly intact. Cognition and Speech: Oriented, Speech clear and coherent. Psychiatric: Cooperative, Appropriate mood & affect. Review / Management 36hr Labs 02/26 0259 Glucose Lvl80 BUN17 Creatinine Lvl1.1 Sodium Bpx612 Potassium Lvl4.6 Chloride Tcm213 CO224 AGAP13.6 Calcium Lvl8.1 L eGFR62 WBC8.1 RBC4.29 L Hgb12.5 L Hct38.0 L MCV88.6 MCH29.2 MCHC32.9 RDW16.0 H Gwjytuwt293 L MPV10.0 Segs68.7 Monocytes8.6 Pqtihcbimai12.9 Eosinophils1.3 Basophils0.5 Segs-Bands #5.6 Lymphocytes #1.7 Monocytes #0.7 Eosinophils #0.1 PT15.5 H INR1.22 H PTT30.3 IMPRESSION: The patient is a pleasant 84-year-old gentleman with a history of permanent atrial fibrillation with Chadsvasc score of 4 and has bled score of 4 at a high risk of cardioembolic stroke and bleeding risk due to his multiple medical comorbidities. Patient underwent a successful left atrial appendage closure device with the Watchman 33 mm without difficulty. Intraoperatively, the patient noted to have an echogenic freely mobile mass on the right atrial lead, highly suggestive of thrombus. Given transseptal puncturing and dilation, the patient had increased stroke risk postoperatively; therefore, decision was made to proceed with atrial septal defect closure with an 18-mm AST Amplatz cribriform device. The patient tolerated the procedure well with no immediate periprocedural complications. Close overnight observation in [facility]. PLAN: 1. Permanent atrial fibrillation. S/P ANNA Watchman closure device, 33 mm. Continue for 6 weeks in addition to aspirin therapy. The patient is ventricular paced at 60 beats per minute. Continue current medical regimen consisting of amiodarone and Coreg .Post operative 2D TR performed showing well seated ASD Cribiform device, no evidence of color Doppler shunting across ASD. 2. Right atrial ICD lead echogenic mass. Likely thrombus, resume anticoagulation with coumadin. Given transeptal puncture and atrial septal defect post Watchman procedure, patient underwent ASD closure with 18 mm Amplatz Cribiform Device. 3. Congestive heart failure, combined systolic and diastolic, continue Lasix therapy in addition to amlodipine and coreg. Patient with no known history of coronary artery disease. 4. Hypertension, well controlled. Continue current medical regimen. 5. Pleuritic Left Sided Chest Discomfort - Pain has improved since yesterday evening. EKG shows ventricular pacing, low clinical suspician of ischemia. 2 view CXR pending this AM. Post operative CXR without significant abnormalities. Preliminary review of post operative 2D TR without pericardial effusion. Continue with colchicine 0.6 mg po bid. Will follow up on two-view chest x-ray and complete 2D echocardiogram interpretation (preliminarily reviewed). Ambulate, DC [place] likely discharge today or tommorow. I have seen and examined the patient with the Resident/Fellow. I agree with the findings and plans above except for the following: OK to DC on colchicine. F/U Dr. Rowe Extracted from: Title: CCU Note Author: Frantz Collins MD Date: 02/25/15 Impression and Plan 84 year old male who is s/p watchman procedure S/p procedure - Will observe - Asprin and 5 mg Coumadin tomorrow CHF Resume home medications, was not on ACEI per [employer]. HTN Restarted on Amlodipine, lasix and carvedilol [facility] Daily Patient Safety Checklist Yes No Mechanical Ventilation? _ _x 1. Sedation level addressed? _ _x 2. Sedation holiday performed if indicated? _ x 3. Adequate pain control? _ x 4. Delirium assessment done and addressed? _ x 5. Restraints assessed/reordered? _ x 6. PUD ppx? _ x Blood Stream Infection Prevention: 1.Central Line necessity addressed? _ x _ vasoactive agents, _ TPN, _loss of venous access 2.Central Line duration > 5 days? _ x CAUTI Prevention: 1. [place] necessity addressed? _ x _ complete bedrest, _ urinary retention,_ 2. [place] duration > 3 days? _ x DVT Prevention: 1. VTE Advisor Completed on admission? x 2.DVT ppx? x _ Nutrition 1. Enteral Feeding within 48h? x _ Blood Glucose Control 1. 60 mg/dl< BG < 200mg/dl? _ _ CAD/CHF/PCI Requirements: 1.ASA post HI? x _ 2.ACEi + BB in CHF? x _ 3. Statinin CAD? - _ No CAD per [facility] 4. DAPT post-PCI? x _ 5. Renal Protection Fluid Protocol Post-PCI? _ Discharge Planning 1. PT/OT? - _ 2. Cardiac Rehab? _ _ 3. Case Management/Social Work Consult? _ _ Extracted from: Title: MS PCCM Consult H&P * Author: Max Ramsay Date: Patient: SOFIYA TORRES Age: 84 years Sex: Male : 1930 Associated Diagnoses: None Author: Max Ramsay Basic Information Present at bedside: Family member, Medical personnel. Source of history: Self, Medical record. Referral source: Luke Back MD. History limitation: None. History of Present Illness Mr. Torres is a 84 year old male with pmh significant for diastolic CHF , cardiac arrest, TR, MR, recurrent VT, Afib CHADs score 4 who was admitted for an elective left atrial appendage closure device. Intraoperatively he recieved 1L of crystalloid and had an EBL of <25 cc. He was extubated postprocedure, then transferred to [facility] for further evaluation and care. MS PCCM consultation has been requested for postoperative care. Review of Systems Constitutional: Negative. Eye: Negative. Ear/Nose/Mouth/Throat: Negative. Respiratory: Negative. Cardiovascular: Chest pain: Left sided. Gastrointestinal: Negative. Genitourinary: Negative. Hematology/Lymphatics: Negative. Endocrine: Negative. Immunologic: Negative. Musculoskeletal: Negative. Integumentary: Negative. Neurologic: Negative. Psychiatric: Negative. ROS reviewed as documented in chart Health Status Allergies: Allergic Reactions (All) Severity Not Documented NKDA- No reactions were documented., Allergies (1) ActiveReaction NKDANone Documented Histories Past Medical History: diastolic chf, afib, vt, HTN Procedure history: PPM, AICD, TKA Physical Examination VS/Measurements Vital Signs (last 24 hrs) Last Charted Heart Rate Edzedx82 bpm (FEB 25 08:00) Resp Rate L 9BRMIN (FEB 25 08:00) SOD233 mmHg (FEB 25 08:00) DBP67 mmHg (FEB 25 08:00) Lfbfcd04.818 kg (FEB 25 07:50) Pheplg794.34 cm (FEB 25 07:50) BMI26.69 (FEB 25 07:50) , Measurements from flowsheet : Measurements 02/25/2015 07:50 Heparin Dosing Weight (kg) 86.82 02/25/2015 07:50 Height 180.34 cm Height Collection Method Stated Weight 86.818 kg Dosing Weight Difference Percent 0.526 % Dosing Weight Collection Method Measured Body Surface Area 2.0854 m2 Body Mass Index 26.69 m2 General: Alert and oriented. Eye: Pupils are equal, round and reactive to light. HENT: Normocephalic. Neck: Supple. Respiratory: Lungs are clear to auscultation, Respirations are non-labored. Cardiovascular: Normal rate, Regular rhythm, Good pulses equal in all extremities, No edema. Gastrointestinal: Soft. Genitourinary: No costovertebral angle tenderness. Lymphatics: No lymphadenopathy neck, axilla, groin. Musculoskeletal Normal range of motion. Integumentary: Warm. Neurologic: Alert, Oriented, Normal sensory, Normal motor function, Cranial Nerves II-XII are grossly intact. Cognition and Speech: Oriented, Speech clear and coherent. Psychiatric: Cooperative, Appropriate mood & affect. Review / Management Results review: Labs (Last four charted values) WBC 7.1(FEB 25) Hgb L 13.8(FEB 25) Hct 42.0(FEB 25) Plt L 118(FEB 25) Na 143(FEB 25) K 4.0(FEB 25) CO2 30(FEB 25) Cl 106(FEB 25) Cr 1.2(FEB 25) BUN 19(FEB 25) Glucose Random H 102(FEB 25) Ca 8.7(FEB 25) PT H 14.8(FEB 25) INR 1.15(FEB 25) PTT 28.3(FEB 25). 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 Cv: HD stable, on ASA, cont. to monitor. Pulm: stable on room air, start VEP, oob to chair once bedrest complete. Postop chest xray pending. Gi: advance diet as tolerated. Gu: creat./lytes stable, d/c boston once bedrest complete Heme: post procedure H/H stable, insertion site clean, dry and intact. Cont. to monitor. Place teds and SCD. ID: [email or web address], wbc stable cont. to monitor. Endo:euglycemic , cont. to monitor. Assessment and plan reviewed and discussed with [facility] attending Dr. Andrew Brown. Addendum [facility] Pulmonary/Critical Care Attending by Kevin, I have seen and examined the patient with SUPERVISING [employer] Max Ramsay, I agree with her Andrew assessment and plan. Josh HUBBARD I have independently examined the patient and reviewed the laboratory and radiologic data. on Patient doing well after ANNA closure procedure 02/25/2015 lungs clear 23:11 khadra, regular with systolic murmur Scheduled Meds (8): 02/26/15 AMIODarone 200 mg PO Daily 02/25/15 amLODIPine 5 mg PO Daily 02/26/15 aspirin 81 mg PO Daily 02/25/15 carvedilol (Coreg) 6.25 mg PO Q12H 02/25/15 colchicine (colchicine 0.6 mg oral tablet) 0.6 mg PO BID 02/25/15 famotidine 20 mg PO BID 02/26/15 furosemide (furosemide 40 mg oral tablet) 40 mg PO Daily 02/26/15 magnesium oxide 400 mg PO Daily Unscheduled Meds: None PRN Meds (1): 02/25/15 tramadol (tramadol 50 mg oral tablet) 50 mg PO Q6H One Time Meds (3): 02/25/15 (Completed) GI cocktail 30 mL PO ONCE 02/25/15 (Completed) Sodium Chloride 0.9% IV (Sodium Chloride 0.9% (Bolus) IV ) 250 mL IV ONCE 02/25/15 (Deleted) magic mouth wash (Magic Mouth Wash 460 (Maalox/Benadryl/Carafate/Lidocaine)) PO ONCE Continuous Infusions: None CXR shows bilateral hyperinflated lungs without pneumothorax will continue postoperative care
--- OUTSIDE RECORDS SUMMARY | 2017-12-26 12:24 | XMS REPORT | Summary of Care ---
Author Organization Unknown Address Unknown Phone Unavailable Encounter HQ Encntr_aliramin(FIN) [id number] Date(s): 10/01/14 - 10/01/14 [facility] Outpatient Imaging - [place] [address] [place], [place] [address] [phone] Discharge Disposition: Home Physician Attending: Sherley Fabian MD Vital Signs No data available for [...]
--- OUTSIDE RECORDS SUMMARY | 2017-12-26 12:24 | XMS REPORT | Summary of Care ---
Author Author [facility] Organization [facility] Address Unknown Phone Unavailable Encounter JOAQUÍN Rodney(ROSA) [id number] Date(s): 06/10/16 - 06/11/16 [facility] [address] [facility] provided by [facility] [place] [address]- Discharge Disposition: Home or Self Care Attending Physician: Kaya King MD Admitting Physician: Kaya King MD Referring Physician: Kaya King MD Vital Signs 1 2 3 Most recent to oldest [Reference Range]: 182.88 cm (06/10/16 7:29 AM) 182.88 cm (06/04/16 11:50 AM) Height 97.8 DegF (06/11/16 8:30 AM) 97.8 DegF (06/11/16 5:23 AM) 97.6 DegF (06/11/16 12:35 AM) Temperature Oral [96.4-99.1 DegF] 168/94 mmHg *HI* (06/11/16 8:30 AM) 159/85 mmHg *HI* (06/11/16 5:23 AM) 147/85 mmHg *HI* (06/11/16 12:35 AM) Blood Pressure [90-140/60-90 mmHg] 18 BRMIN (06/11/16 8:30 AM) 18 BRMIN (06/11/16 5:23 AM) 18 BRMIN (06/11/16 12:35 AM) Respiratory Rate [14-20 BRMIN] 61 bpm (06/11/16 8:30 AM) 100 bpm (06/10/16 7:29 AM) 67 bpm (06/04/16 11:50 AM) Peripheral Pulse Rate [60-100 bpm] 86.364 kg (06/10/16 7:29 AM) 89.091 kg (06/04/16 11:50 AM) Weight 25.82 m2 (06/10/16 7:29 AM) 26.64 m2 (06/04/16 11:50 AM) Body Mass Index Problem List Condition Effective Dates Status Health Status Informant AF - Atrial Active fibrillation(Confirm ed) BPH(Confirmed) Active Cardiac Resolved arrest(Confirmed) CHF (congestive Resolved heart failure)(Confirmed) Congestive heart Active failure(Confirmed) Diastolic heart Resolved failure(Confirmed) HTN - Active Hypertension(Confirm ed) Pleural Active effusion(Confirmed) VT - Ventricular Resolved tachycardia(Confirme d) Allergies, Adverse Reactions, Alerts Substance Reaction Severity Status NKDA Active Medications Acidophilus PO, Daily, 0 Refill(s) Start Date: 06/04/16 Status: Ordered AMIODarone 200 mg, 1 tab, Route: PO, Drug form: TAB, Daily, Dosing Weight 86.364, kg, Start date: 06/11/16 9:00:00 [employer], Duration: 30 day, Stop date: 07/10/16 9:00:00 [employer] Notes: (Same as: Cordarone) Start Date: 06/11/16 Stop Date: 06/11/16 Status: Discontinued ANES flumazenil 0.2 mg, 2 mL, Route: IVP, Drug form: INJ, PRN, Dosing Weight 86.364, kg, PRN Benzodiazepine Reversal, Initial dose, Start date: 06/10/16 10:15:00 [employer], Duration: 1 day, Stop date: 06/11/16 10:14:00 [employer] Notes: (Same as: Romazicon) Start Date: 06/10/16 Stop Date: 06/10/16 Status: Discontinued ANES hydrALAZINE 10 mg, 0.5 mL, Route: IVP, Drug form: INJ, Q20Min, Dosing Weight 86.364, kg, PRN Elevated BP, Start date: 06/10/16 10:15:00 [employer], Duration: 2 doses or times, Stop date: Limited # of times Notes: (Same as: Apresoline)Push over 5 minutes Start Date: 06/10/16 Stop Date: 06/10/16 Status: Discontinued ANES HYDROmorphone 0.25 mg, 0.13 mL, Route: IVP, Drug form: INJ, Q5Min, Dosing Weight 86.364, kg, PRN Pain Score 7-10, Start date: 06/10/16 10:15:00 [employer], Duration: 4 doses or times, Stop date: Limited # of times Notes: Same as Dilaudid Start Date: 06/10/16 Stop Date: 06/10/16 Status: Completed ANES naloxone 0.4 mg, 1 mL, Route: IVP, Drug form: INJ, Q2MIN, Dosing Weight 86.364, kg, PRN Narcotic Reversal, Start date: 06/10/16 10:15:00 [employer], Duration: 8 doses or times , Stop date: Limited # of times Notes: Same as Narcan Start Date: 06/10/16 Stop Date: 06/10/16 Status: Discontinued aspirin 81 mg tablet, enteric coated 81 mg=1 tab, PO, Daily, # 90 tab, 3 Refill(s) Start Date: 06/04/16 Status: Ordered Azo-Standard 95 mg oral tablet 95 mg=1 tab, PO, TID, PRN Other -See Comment, for burning with urination, X 3 day, # 9 tab, 0 Refill(s) Start Date: 06/11/16 Stop Date: 06/14/16 Status: Ordered Bactrim DS 800 mg- 160 mg oral tablet 1 tab, Route: PO, Drug Form: TAB, Dosing Weight 86.364, kg, ONCE, Start date: 11:27:00 PR[employer]ER ALL AROUND, Stop date: 06/11/16 11:27:00 [employer] AR[employer] Notes: One DS tablet=trimethoprim 160mg + sulfamethoxazole 800 mgDose based on trimethoprim component On empty stomach with a glass of water. 1 hr before meals (Same As: Bactrim DS, Septra DS) Start Date: 06/11/16 Stop Date: 06/11/16 Status: Completed carvedilol 6.25 mg, 1 tab, Route: PO, Drug form: TAB, BID, Dosing Weight 86.364, kg, Start date: 06/10/16 17:00:00 [employer], Duration: 30 day, Stop date: 07/10/16 9:00:00 [employer] AR[employer] Notes: Give with food. (Same As: Coreg) Start Date: 06/10/16 Stop Date: 06/11/16 Status: Discontinued carvedilol 6.25 mg oral tablet 6.25 mg=1 tab, PO, BID, # 180 tab, 0 Refill(s) Start Date: 06/04/16 Status: Ordered Cipro 400 mg, 200 mL, Route: IVPB, Drug form: INJ, PRE OP, Start date: 06/09/16 23:00: 00 [employer], Duration: 1 day, Stop date: 06/10/16 22:59:00 [employer] AR[employer] Notes: Do not refrigerate Start Date: 06/09/16 Stop Date: 06/10/16 Status: Completed Dilaudid 0.2 mg, 0.1 mL, Route: IVP, Drug form: INJ, Q3H, Dosing Weight 86.364, kg, PRN Pain Score 7-10, Start date: 06/10/16 10:00:00 [employer] AR[employer], Duration: 30 day, Stop date : 07/10/16 9:59:00 [employer] AR[employer] Notes: Same as Dilaudid Start Date: 06/10/16 Stop Date: 06/11/16 Status: Discontinued Ditropan XL 10 mg, 2 tab, Route: PO, Drug form: ERTAB, Daily, Dosing Weight 86.364, kg, Start date: 06/10/16 17:00:00 [employer] AR[employer], Stop date: 07/10/16 9:00:00 [employer] AR[employer] Notes: (Same as: Ditropan XL) "Do Not Crush" Start Date: 06/10/16 Stop Date: 06/11/16 Status: Discontinued docusate 100 mg, 10 mL, Route: PO, Drug form: LIQ, BID, Dosing Weight 86.364, kg, PRN Constipation, Start date: 06/10/16 9:58:00 [employer] AR[employer], Duration: 30 day, Stop date: 9:57:00 [employer] AR[employer] Notes: (Same as: Colace) Start Date: 06/10/16 Stop Date: 06/11/16 Status: Discontinued finasteride 5 mg, 1 tab, Route: PO, Drug form: TAB, Daily, Dosing Weight 86.364, kg, Start date: 06/11/16 9:00:00 [employer] AR[employer], Duration: 30 day, Stop date: 07/10/16 9:00:00 [employer]ER [employer] AR[employer] Notes: (Same as: Proscar) "Do Not Crush"Women of childbearing age should not touch or handle broken tablets Start Date: 06/11/16 Stop Date: 06/11/16 Status: Discontinued finasteride 5 mg oral tablet 5 mg=1 tab, PO, Daily, # 30 tab, 0 Refill(s) Start Date: 06/04/16 Status: Ordered Flomax 0.4 mg oral capsule 0.4 mg=1 cap, PO, Bedtime, 0 Refill(s) Start Date: 06/04/16 Stop Date: 06/11/16 Status: Discontinued furosemide 40 mg oral tablet 40 mg, 1 tab, Route: PO, Drug form: TAB, BID, Dosing Weight 86.364, kg, Start date: 06/10/16 17:00:00 [employer] AR[employer], Duration: 30 day, Stop date: 07/10/16 9:00:00 [employer] AR[employer] Notes: (Same as: Lasix) May cause GI upset. Give with food or milk. Start Date: 06/10/16 Stop Date: 06/11/16 Status: Discontinued Klor-Con M20 oral tablet, extended release 20 mEq=1 tab, PO, Daily, # 90 tab, 1 Refill(s) Start Date: 06/04/16 Status: Ordered Lactated Ringers 1,000 mL 1,000 mL, Rate: 125 ml/hr, Infuse over: 8 hr, Route: IV, Dosing Weight 86.364 kg , Total Volume: 1,000, Start date: 06/10/16 9:58:00 PR[employer]ER ALL AROUND, Duration: 30 day, Stop date: 07/10/16 9:57:00 PR[employer]ER ALL AROUND Start Date: 06/10/16 Stop Date: 06/11/16 Status: Discontinued losartan 100 mg, 2 tab, Route: PO, Drug form: TAB, Bedtime, Dosing Weight 86.364, kg, Start date: 06/10/16 21:00:00 [employer] AR[employer], Duration: 30 day, Stop date: 07/09/16 21:00: 00 [employer] Notes: (Same as: Lisa) Start Date: 06/10/16 Stop Date: 06/11/16 Status: Discontinued losartan 100 mg oral tablet 100 mg=1 tab, PO, Bedtime, 0 Refill(s) Start Date: 06/04/16 Status: Ordered Lovenox 40 mg, 0.4 mL, Route: SUB-Q, Drug form: INJ, [id number], Dosing Weight 86.364, kg , Start date: 06/11/16 9:00:00 [employer], Duration: 30 day, Stop date: 07/10/16 9:00: 00 [employer] AR[employer] Notes: (Same as: Lovenox) Start Date: 06/11/16 Stop Date: 06/11/16 Status: Discontinued ondansetron 4 mg, 2 mL, Route: IVP, Drug form: INJ, Q6H, Dosing Weight 86.364, kg, PRN Nausea & Vomiting, Start date: 06/10/16 9:58:00 [employer], Duration: 30 day, Stop date : 07/10/16 9:57:00 [employer] AR[employer] Notes: (Same as: Zofran) MEDICATION WASTE Product Size: 4 mgProduct Wasted: ___ mg Start Date: 06/10/16 Stop Date: 06/11/16 Status: Discontinued Pepcid 40 mg oral tablet 40 mg, 4 tab, Route: PO, Drug form: TAB, Daily, Dosing Weight 86.364, kg, Start date: 06/10/16 15:51:00 [employer] AR[employer], Duration: 30 day, Stop date: 07/10/16 9:00:00 [employer] AR[employer] Notes: (Same as: Pepcid AC) Start Date: 06/10/16 Stop Date: 06/11/16 Status: Discontinued Plavix 75 mg oral tablet 75 mg=1 tab, PO, Daily, # 30 tab, 0 Refill(s) Start Date: 06/04/16 Status: Ordered pneumococcal 13-valent vaccine 0.5 mL, Route: IM, Drug Form: INJ, Daily, Start date: 06/11/16 9:00:00 [employer] AR[employer], Duration: 1 doses or times, Stop date: 06/11/16 9:00:00 [employer] Notes: Lightly roll vial (DO NOT SHAKE) before administration. (Same as: Prevnar 13) Start Date: 06/11/16 Stop Date: 06/11/16 Status: Completed Saline Flush 0.9% 10 ml, Route: IVP, Drug Form: INJ, Dosing Weight 86.364, kg, PRN, PRN Line Flush , Start date: 06/10/16 9:58:00 [employer] AR[employer], Duration: 30 day, Stop date: 07/10/16 9:57: 00 [employer] AROUND Notes: (Same as: BD Posiflush) Start Date: 06/10/16 Stop Date: 06/11/16 Status: Discontinued tramadol 50 mg, 1 tab, Route: PO, Drug form: TAB, Q4H, Dosing Weight 86.364, kg, PRN Pain 4-6/Temp > 100.4 F, > 50 kg, Priority: STAT, Start date: 06/10/16 10:01:00 [employer] AR[employer], Duration: 30 day, Stop date: 07/10/16 10:00:00 [employer]ER [employer] AROUND Notes: Not to exceed 400mg/day. (Same As: Ultram) Start Date: 06/10/16 Stop Date: 06/11/16 Status: Discontinued tramadol 50 mg oral tablet 50 mg=1 tab, PO, Q6H, PRN Pain, X 10 day, # 40 tab, 0 Refill(s) Start Date: 06/11/16 Stop Date: 06/21/16 Status: Ordered Tylenol 1,000 mg, 2 tab, Route: PO, Drug form: TAB, Q6H, Dosing Weight 86.364, kg, Priority: STAT, Start date: 06/10/16 10:00:00 PR[employer]ER [employer] AROUND, Duration: 30 day, Stop date: 07/10/16 6:00:00 PR[employer]ER ALL AROUND Notes: Max acetaminophen 4000 mg/day (4 gm/day). (Same as: Tylenol Extra Strength) Start Date: 06/10/16 Stop Date: 06/11/16 Status: Discontinued Vitamin B Complex oral capsule 1 tab, PO, Daily, # 30 cap, 0 Refill(s) Start Date: 06/04/16 Status: Ordered Results BLOOD BANK RESULTS Most recent to 1 2 oldest [Reference Range]: ABO/Rh B POS *Unknown* (06/10/16 7:36 AM) Antibody Scrn Negative (06/10/16 7:36 AM) ELECTROLYTES Most recent to 1 2 oldest [Reference Range]: Sodium Lvl [135-145 146 mEq/L 149 mEq/L mEq/L] *HI* *HI* (06/11/16 3:39 AM) (06/04/16 4:33 PM) Potassium Lvl 4.2 mEq/L 4.2 mEq/L [3.5-5.1 mEq/L] (06/11/16 3:39 AM) (06/04/16 4:33 PM) Chloride Lvl [95-109 112 mEq/L 106 mEq/L mEq/L] *HI* (06/04/16 4:33 PM) (06/11/16 3:39 AM) CO2 [24-32 mEq/L] 27 mEq/L 27 mEq/L (06/11/16 3:39 AM) (06/04/16 4:33 PM) AGAP [10.0-20.0 11.2 mEq/L 20.2 mEq/L mEq/L] (06/11/16 3:39 AM) *HI* (06/04/16 4:33 PM) CHEM PANEL Most recent to 1 2 oldest [Reference Range]: Creatinine Lvl 1.08 mg/dL 1.13 mg/dL [0.50-1.40 mg/dL] (06/11/16 3:39 AM) (06/04/16 4:33 PM) eGFR 63 mL/min/1.73m2 1 60 mL/min/1.73m2 2 *NA* *NA* (06/11/16 3:39 AM) (06/04/16 4:33 PM) BUN [7-22 mg/dL] 19 mg/dL 26 mg/dL (06/11/16 3:39 AM) *HI* (06/04/16 4:33 PM) B/C Ratio [6-25] 23 (06/04/16 4:33 PM) Glucose Lvl [70-99 101 mg/dL 75 mg/dL mg/dL] *HI* (06/04/16 4:33 PM) (06/11/16 3:39 AM) Total Protein 7.1 g/dL [6.4-8.4 g/dL] (06/04/16 4:33 PM) Albumin Lvl [3.5-5.0 4.3 g/dL g/dL] (06/04/16 4:33 PM) Globulin [2.7-4.2 2.8 g/dL g/dL] (06/04/16 4:33 PM) A/G Ratio [0.7-1.6] 1.5 (06/04/16 4:33 PM) Calcium Lvl 8.7 mg/dL 9.1 mg/dL [8.5-10.5 mg/dL] (06/11/16 3:39 AM) (06/04/16 4:33 PM) ALT [0-65 unit/L] 29 unit/L (06/04/16 4:33 PM) AST [0-37 unit/L] 21 unit/L (06/04/16 4:33 PM) Alk Phos [39-136 103 unit/L unit/L] (06/04/16 4:33 PM) Bili Total [0.2-1.3 1.4 mg/dL mg/dL] *HI* (06/04/16 4:33 PM) 1Result Comment: The eGFR is calculated using [...] be multiplied by the estimated BMI. HEMATOLOGY Most recent to 1 2 oldest [Reference Range]: WBC [3.7-10.4 K/CMM] 6.8 K/CMM 6.9 K/CMM (06/11/16 3:39 AM) (06/04/16 4:33 PM) RBC [4.70-6.10 4.21 M/CMM 4.68 M/CMM M/CMM] *LOW* *LOW* (06/11/16 3:39 AM) (06/04/16 4:33 PM) Hgb [14.0-18.0 g/dL] 13.2 g/dL 14.6 g/dL *LOW* (06/04/16 4:33 PM) (06/11/16 3:39 AM) Hct [42.0-54.0 %] 38.0 % 42.8 % *LOW* (06/04/16 4:33 PM) (06/11/16 3:39 AM) MCV [80.0-94.0 fL] 90.4 fL 91.4 fL (06/11/16 3:39 AM) (06/04/16 4:33 PM) MCH [27.0-31.0 pg] 31.4 pg 31.2 pg *HI* *HI* (06/11/16 3:39 AM) (06/04/16 4:33 PM) MCHC [32.0-36.0 34.7 g/dL 34.1 g/dL g/dL] (06/11/16 3:39 AM) (06/04/16 4:33 PM) RDW [11.5-14.5 %] 13.9 % 14.3 % (06/11/16 3:39 AM) (06/04/16 4:33 PM) Platelet [133-450 100 K/CMM 125 K/CMM K/CMM] *LOW* *LOW* (06/11/16 3:39 AM) (06/04/16 4:33 PM) MPV [7.4-10.4 fL] 10.1 fL 10.6 fL (06/11/16 3:39 AM) *HI* (06/04/16 4:33 PM) Segs [45.0-75.0 %] 67.8 % 59.2 % (06/11/16 3:39 AM) (06/04/16 4:33 PM) Lymphocytes 23.1 % 32.3 % [20.0-40.0 %] (06/11/16 3:39 AM) (06/04/16 4:33 PM) Monocytes [2.0-12.0 6.9 % 6.1 % %] (06/11/16 3:39 AM) (06/04/16 4:33 PM) Eosinophils [0.0-4.0 1.7 % 1.8 % %] (06/11/16 3:39 AM) (06/04/16 4:33 PM) Basophils [0.0-1.0 0.5 % 0.6 % %] (06/11/16 3:39 AM) (06/04/16 4:33 PM) Segs-Bands # 4.6 K/CMM 4.1 K/CMM [1.5-8.1 K/CMM] (06/11/16 3:39 AM) (06/04/16 4:33 PM) Lymphocytes # 1.6 K/CMM 2.2 K/CMM [1.0-5.5 K/CMM] (06/11/16 3:39 AM) (06/04/16 4:33 PM) Monocytes # [0.0-0.8 0.5 K/CMM 0.4 K/CMM K/CMM] (06/11/16 3:39 AM) (06/04/16 4:33 PM) Eosinophils # 0.1 K/CMM 0.1 K/CMM [0.0-0.5 K/CMM] (06/11/16 3:39 AM) (06/04/16 4:33 PM) PT [12.0-14.7 14.7 seconds 14.8 seconds seconds] (06/10/16 7:36 AM) *HI* (06/04/16 4:33 PM) INR [0.85-1.17] 1.13 1.14 (06/10/16 7:36 AM) (06/04/16 4:33 PM) PTT [22.9-35.8 30.1 seconds 29.1 seconds seconds] (06/10/16 7:36 AM) (06/04/16 4:33 PM) R-time [5.0-10.0 4.1 minutes 3.8 minutes minutes] *LOW* *LOW* (06/10/16 7:36 AM) (06/04/16 4:33 PM) K-time [1.0-3.0 1.5 minutes 1.3 minutes minutes] (06/10/16 7:36 AM) (06/04/16 4:33 PM) Angle [53.0-72.0 71.6 degrees 69.3 degrees degrees] (06/10/16 7:36 AM) (06/04/16 4:33 PM) Max Amp [50.0-70.0 62.5 mm 66.7 mm mm] (06/10/16 7:36 AM) (06/04/16 4:33 PM) G-value [4.5-11.0 K 8.3 K d/sc 10.0 K d/sc d/sc] (06/10/16 7:36 AM) (06/04/16 4:33 PM) Ly30 [0.0-7.5 %] 0.9 % 0.8 % (06/10/16 7:36 AM) (06/04/16 4:33 PM) Coag Index 2.1 2.7 [-3.0-3.0] (06/10/16 7:36 AM) (06/04/16 4:33 PM) TEG Interp Thrombelastograph results show shortened Thrombelastograph results show shortened value of R. This finding is suggestive value of R. This finding is suggestive of enzymatic hypercoagulation. of enzymatic hypercoagulation. CPT:97235 CPT:30745 *NA* *NA* (06/10/16 7:36 AM) (06/04/16 4:33 PM) TEG Data See Note See Note (06/10/16 7:36 AM) (06/04/16 4:33 PM) Immunizations Given and Recorded Vaccine Date Status Refusal Reason pneumococcal 13-valent vaccine 06/11/16 Given Procedures Procedure Date Related Diagnosis Body Site TURP - Transurethral resection of prostate Social History Social History Type Response Smoking Status Never smoker; Exposure to Tobacco Smoke None; Cigarette Smoking Last 365 Days Unable to obtain; Reg Smoking Cessation Counseling No Assessment and Plan Extracted from: Title: [facility] Progress Note * Author: Olimpia Parham MD Date: 06/11 Impression and Plan 85 yo male PMhx HTN s/p TURP 06/10/2016 -[facility]BI turned off this AM -May go home with catheter versus void trial, will follow-up final plans on catheter -Likely home today -Ambulate -Lovenox to begin today -Reg diet Olimpia Parham MD #[id number] Urology, PGY-2
--- OUTSIDE RECORDS SUMMARY | 2017-12-26 12:25 | XMS REPORT | Summary of Care ---
Author Author [facility] Organization [facility] Address Unknown Phone Unavailable Encounter JOAQUÍN Rodney(ROSA) [phone] Date(s): 06/10/17 - 06/13/17 [facility] [address] [employer] provided by [employer] [facility] [employer] [place] [address]- Discharge Disposition: Home or Self Care Attending Physician: Bryant Diaz MD Admitting Physician: Bryant Diaz MD Vital Signs 1 2 3 Most recent to oldest [Reference Range]: 182.88 cm (06/10/17 10:46 PM) 182.88 cm (06/10/17 7:27 PM) Height 84.136 kg (06/13/17 2:28 AM) Current Weight 96.4 DegF *LOW* (06/13/17 11:00 AM) 97.8 DegF (06/13/17 8:00 AM) 97.6 DegF (06/13/17 4:00 AM) Temperature Oral [96.4-99.1 DegF] 139/66 mmHg (06/13/17 11:00 AM) 143/64 mmHg *HI* (06/13/17 10:00 AM) 126/59 mmHg (06/13/17 9:00 AM) Blood Pressure [90-140/60-90 mmHg] 24 BRMIN *HI* (06/13/17 2:00 PM) 27 BRMIN *HI* (06/13/17 1:00 PM) 28 BRMIN *HI* (06/13/17 12:00 PM) Respiratory Rate [14-20 BRMIN] 67 bpm (06/10/17 7:27 PM) Peripheral Pulse Rate [60-100 bpm] 84.659 kg (06/12/17 5:49 AM) 86.9 kg (06/10/17 10:46 PM) 89.091 kg (06/10/17 7:27 PM) Weight 25.98 m2 (06/10/17 10:46 PM) 26.64 m2 (06/10/17 7:27 PM) Body Mass Index Problem List Condition Effective Dates Status Health Status Informant AF - Atrial Active fibrillation(Confirm ed) BPH(Confirmed) Active Cardiac Resolved arrest(Confirmed) CHF (congestive Resolved heart failure)(Confirmed) Congestive heart Active failure(Confirmed) Diastolic heart Resolved failure(Confirmed) HTN - Active Hypertension(Confirm ed) Pleural Active effusion(Confirmed) VT - Ventricular Resolved tachycardia(Confirme d) Allergies, Adverse Reactions, Alerts Substance Reaction Severity Status NKDA Active Medications AMIODarone 200 mg, 1 tab, Route: PO, Drug form: TAB, Daily, Dosing Weight 86.9, kg, Start date: 06/11/17 9:00:00 ADDICTION COUNSELOR, Duration: 30 day, Stop date: 07/11/17 8:59:00 ADDICTION COUNSELOR Notes: (Same as: Cordarone) Start Date: 06/11/17 Stop Date: 06/13/17 Status: Discontinued AMIODarone 200 mg oral tablet 200 mg=1 tab, PO, Daily, # 30 tab, 0 Refill(s) Start Date: 06/13/17 Stop Date: 07/13/17 Status: Ordered amLODIPine 5 mg, 1 tab, Route: PO, Drug form: TAB, Daily, Dosing Weight 84.659, kg, Start date: 06/12/17 18:00:00 ADDICTION COUNSELOR, Duration: 30 day, Stop date: 07/12/17 17:59:00 ADDICTION COUNSELOR Notes: (Same as: Norvasc) Start Date: 06/12/17 Stop Date: 06/13/17 Status: Discontinued aspirin 325 mg, PO, ONCE, # 30 tab, 3 Refill(s) Start Date: 06/10/17 Stop Date: 06/13/17 Status: Discontinued aspirin 325 mg, 1 tab, Route: PO, Drug form: TAB, ONCE, Dosing Weight 86.9, kg, Start date: 06/10/17 23:54:00 ADDICTION COUNSELOR, Stop date: 06/10/17 23:54:00 ADDICTION COUNSELOR Notes: Take with food. Start Date: 06/10/17 Stop Date: 06/11/17 Status: Discontinued aspirin 325 mg, 1 tab, Route: PO, Drug form: TAB, Daily, Dosing Weight 86.9, kg, Start date: 06/11/17 9:00:00 ADDICTION COUNSELOR, Duration: 30 day, Stop date: 07/11/17 8:59:00 ADDICTION COUNSELOR Notes: Take with food. Start Date: 06/11/17 Stop Date: 06/13/17 Status: Discontinued aspirin 325 mg tablet, enteric coated 325 mg, PO, Daily, # 30 tab, 2 Refill(s) Start Date: 06/13/17 Stop Date: 09/11/17 Status: Ordered calcium carbonate 500 mg (200 mg elemental calcium) oral tablet 500 mg, 1 tab, Route: PO, Drug form: CHEWTAB, PRN, Dosing Weight 86.9, kg, PRN Abnormal Lab Result, FOR ICU USE ONLY, Start date: 06/11/17 0:52:00 ADDICTION COUNSELOR, Duration: 30 day, Stop date: 07/11/17 0:51:00 ADDICTION COUNSELOR Notes: (Same As: Willem)Calcium Carbonate 500 qe=927 mg elemental calcium Dose=_ mg calcium carbonate ( mg elemental calcium) Start Date: 06/11/17 Stop Date: 06/13/17 Status: Discontinued calcium carbonate 500 mg (200 mg elemental calcium) oral tablet 1,000 mg, 2 tab, Route: PO, Drug form: CHEWTAB, PRN, Dosing Weight 86.9, kg, PRN Abnormal Lab Result, FOR ICU USE ONLY, Start date: 06/11/17 0:52:00 ADDICTION COUNSELOR, Duration: 30 day, Stop date: 07/11/17 0:51:00 ADDICTION COUNSELOR Notes: (Same As: Willem)Calcium Carbonate 500 xq=498 mg elemental calcium Dose=_ mg calcium carbonate ( mg elemental calcium) Start Date: 06/11/17 Stop Date: 06/13/17 Status: Discontinued calcium gluconate + Sodium Chloride 0.9% IV 50 mL 1 gm, 10 mL, Route: IVPB, PRN, Dosing Weight 86.9, kg, PRN Abnormal Lab Result, Start date: 06/11/17 0:52:00 ADDICTION COUNSELOR, Duration: 30 day, Stop date: 07/11/17 0:51:00 ADDICTION COUNSELOR, FOR ICU USE ONLY Notes: WASTE: F/P - Sink; E - Municipal Trash Bin Start Date: 06/11/17 Stop Date: 06/13/17 Status: Discontinued carvedilol 6.25 mg, 1 tab, Route: PO, Drug form: TAB, BID, Dosing Weight 86.9, kg, Start date: 06/11/17 9:00:00 ADDICTION COUNSELOR, Duration: 30 day, Stop date: 07/11/17 8:59:00 ADDICTION COUNSELOR Notes: Give with food. (Same As: Coreg) Start Date: 06/11/17 Stop Date: 06/13/17 Status: Discontinued carvedilol 6.25 mg oral tablet 6.25 mg=1 tab, PO, BID, # 60 tab, 2 Refill(s) Start Date: 06/13/17 Stop Date: 09/11/17 Status: Ordered cyanocobalamin 1,000 microgram, 1 tab, Route: SL, Drug form: TAB, Daily, Dosing Weight 86.9, kg , Start date: 06/11/17 9:00:00 ADDICTION COUNSELOR, Duration: 30 day, Stop date: 07/11/17 8:59: 00 ADDICTION COUNSELOR Notes: (Same As: Vitamin B-12) Start Date: 06/11/17 Stop Date: 06/13/17 Status: Discontinued donepezil 5 mg, 1 tab, Route: PO, Drug form: TAB, Bedtime, Dosing Weight 86.9, kg, Start date: 06/11/17 21:00:00 ADDICTION COUNSELOR, Duration: 30 day, Stop date: 07/11/17 20:59:00 ADDICTION COUNSELOR Notes: (Same as: Aricept) Start Date: 06/11/17 Stop Date: 06/13/17 Status: Discontinued donepezil 5 mg oral tablet 5 mg=1 tab, PO, Bedtime, # 30 tab, 0 Refill(s) Start Date: 06/10/17 Status: Ordered finasteride 5 mg, 1 tab, Route: PO, Drug form: TAB, Daily, Dosing Weight 86.9, kg, Start date: 06/11/17 9:00:00 ADDICTION COUNSELOR, Duration: 30 day, Stop date: 07/11/17 8:59:00 ADDICTION COUNSELOR Notes: (Same as: Proscar) "Do Not Crush"Women of childbearing age should not touch or handle broken tablets Start Date: 06/11/17 Stop Date: 06/13/17 Status: Discontinued finasteride 5 mg, 1 tab, Route: PO, Drug form: TAB, Daily, Dosing Weight 86.9, kg, Start date: 06/11/17 9:00:00 ADDICTION COUNSELOR, Duration: 30 day, Stop date: 07/11/17 8:59:00 ADDICTION COUNSELOR Notes: (Same as: Proscar) "Do Not Crush"Women of childbearing age should not touch or handle broken tablets Start Date: 06/11/17 Stop Date: 06/11/17 Status: Canceled furosemide 40 mg oral tablet 40 mg=1 tab, PO, BID, # 60 tab, 2 Refill(s) Start Date: 06/13/17 Stop Date: 09/11/17 Status: Ordered furosemide 40 mg oral tablet 40 mg, 1 tab, Route: PO, Drug form: TAB, BID, Dosing Weight 84.659, kg, Start date: 06/13/17 11:20:00 ADDICTION COUNSELOR, Duration: 30 day, Stop date: 07/13/17 11:19:00 ADDICTION COUNSELOR Notes: (Same as: Lasix) May cause GI upset. Give with food or milk. Start Date: 06/13/17 Stop Date: 06/13/17 Status: Discontinued Lasix 40 mg, 4 mL, Route: IVP, Drug form: INJ, BID Diuretic, Dosing Weight 86.9, kg, Start date: 06/10/17 23:56:00 ADDICTION COUNSELOR, Duration: 30 day, Stop date: 07/10/17 14:00: 00 ADDICTION COUNSELOR Notes: (Same as: Lasix) MEDICATION WASTE Product Size: 40 mgProduct Wasted: ___ mg Start Date: 06/10/17 Stop Date: 06/13/17 Status: Discontinued losartan 50 mg, 1 tab, Route: PO, Drug form: TAB, BID, Dosing Weight 86.9, kg, Start date : 06/11/17 9:00:00 ADDICTION COUNSELOR, Duration: 30 day, Stop date: 07/11/17 8:59:00 ADDICTION COUNSELOR Notes: (Same as: Lisa) Start Date: 06/11/17 Stop Date: 06/13/17 Status: Discontinued losartan 50 mg oral tablet 50 mg=1 tab, PO, BID, 0 Refill(s) Start Date: 06/10/17 Stop Date: 06/13/17 Status: Discontinued losartan 50 mg oral tablet 50 mg=1 tab, PO, BID, # 60 tab, 2 Refill(s) Start Date: 06/13/17 Stop Date: 09/11/17 Status: Ordered Lovenox 80 mg, 0.8 mL, Route: SUB-Q, Drug form: INJ, Q12H, Dosing Weight 86.9, kg, Start date: 06/11/17 3:15:00 ADDICTION COUNSELOR, Duration: 30 day, Stop date: 07/10/17 21:00: 00 ADDICTION COUNSELOR Notes: Nurse to ensure documentation of patient education per anticoagulation policy. (Same as: Lovenox) Start Date: 06/11/17 Stop Date: 06/13/17 Status: Discontinued magnesium oxide 800 mg, 2 tab, Route: PO, Drug form: TAB, PRN, Dosing Weight 86.9, kg, PRN Abnormal Lab Result, FOR ICU USE ONLY, Start date: 06/11/17 0:52:00 ADDICTION COUNSELOR, Duration: 30 day, Stop date: 07/11/17 0:51:00 ADDICTION COUNSELOR Notes: (Same as: Mag-Ox 400)Magnesium oxide [id number] elemental magnesiumDose= ____mg magnesium oxide (___mg elemental magnesium) Start Date: 06/11/17 Stop Date: 06/13/17 Status: Discontinued magnesium sulfate 2 gm, 50 mL, Route: IVPB, Drug form: INJ, PRN, Dosing Weight 86.9, kg, PRN Abnormal Lab Result, Start date: 06/11/17 0:52:00 ADDICTION COUNSELOR, Duration: 30 day, Stop date: 07/11/17 0:51:00 ADDICTION COUNSELOR, FOR ICU USE ONLY Notes: WASTE: F/P - Sink; E - Municipal Trash Bin Start Date: 06/11/17 Stop Date: 06/13/17 Status: Discontinued multivitamin 1 tab, Route: PO, Drug Form: TAB, Dosing Weight 86.9, kg, Daily, Start date: 9:00:00 ADDICTION COUNSELOR, Duration: 30 day, Stop date: 07/11/17 8:59:00 ADDICTION COUNSELOR Notes: (Same as:Thera)WASTE: F/P - Black; E - Municipal Trash Bin Take with food. Start Date: 06/11/17 Stop Date: 06/13/17 Status: Discontinued omega-3 polyunsaturated fatty acids 1,000 mg, 1 cap, Route: PO, Drug form: CAP, BID, Dosing Weight 86.9, kg, Start date: 06/11/17 9:00:00 ADDICTION COUNSELOR, Duration: 30 day, Stop date: 07/11/17 8:59:00 ADDICTION COUNSELOR Notes: (Same as: MaxEPA, Varna 3 fish oil )Non-Formulary Drug Start Date: 06/11/17 Stop Date: 06/13/17 Status: Discontinued pantoprazole 40 mg, 1 tab, Route: PO, Drug form: ECTAB, Before Breakfast, Dosing Weight 86.9 , kg, Start date: 06/10/17 23:57:00 ADDICTION COUNSELOR, Duration: 30 day, Stop date: 07/10/17 23:56:00 ADDICTION COUNSELOR Notes: Tablet should not be chewed or crushed.(Same as: Protonix) Start Date: 06/10/17 Stop Date: 06/13/17 Status: Discontinued pneumococcal 13-valent vaccine 0.5 mL, Route: IM, Daily, Start date: 06/11/17 9:00:00 ADDICTION COUNSELOR, Duration: 1 doses or times, Stop date: 06/11/17 9:00:00 ADDICTION COUNSELOR Start Date: 06/11/17 Stop Date: 06/11/17 Status: Canceled pneumococcal 23-valent vaccine 0.5 mL, Route: IM, Drug Form: INJ, Daily, Start date: 06/11/17 9:00:00 ADDICTION COUNSELOR, Duration: 1 doses or times, Stop date: 06/11/17 9:00:00 ADDICTION COUNSELOR Notes: (Same as: Pneumovax 23) Refrigerate Start Date: 06/11/17 Stop Date: 06/13/17 Status: Deleted Pneumovax 23 0.5 mL, Route: IM, Drug Form: INJ, Daily, Start date: 06/13/17 16:00:00 ADDICTION COUNSELOR, Duration: 1 doses or times, Stop date: 06/13/17 16:00:00 ADDICTION COUNSELOR Notes: (Same as: Pneumovax 23) Refrigerate Start Date: 06/13/17 Stop Date: 06/13/17 Status: Completed potassium chloride 10 mEq, 50 mL, Route: IVPB, Drug form: INJ, PRN, Dosing Weight 86.9, kg, PRN Abnormal Lab Result, Via peripheral line, Start date: 06/11/17 0:52:00 ADDICTION COUNSELOR, Duration: 30 day, Stop date: 07/11/17 0:51:00 ADDICTION COUNSELOR, FOR ICU USE ONLY Notes: (Same as: KCL) Infuse over 2 hours. Start Date: 06/11/17 Stop Date: 06/13/17 Status: Discontinued potassium chloride 20 mEq, 1 tab, Route: PO, Drug form: ERTAB, PRN, Dosing Weight 86.9, kg, PRN Abnormal Lab Result, Start date: 06/11/17 0:52:00 ADDICTION COUNSELOR, Duration: 30 day, Stop date: 07/11/17 0:51:00 ADDICTION COUNSELOR, FOR ICU USE ONLY Notes: (Same as: K-Dur 20)"Do Not Crush" With food and full glass of water Start Date: 06/11/17 Stop Date: 06/13/17 Status: Discontinued potassium chloride 20 mEq, 15 mL, Route: NJ, Drug form: LIQ, PRN, Dosing Weight 86.9, kg, PRN Abnormal Lab Result, Start date: 06/11/17 0:52:00 ADDICTION COUNSELOR, Duration: 30 day, Stop date: 07/11/17 0:51:00 ADDICTION COUNSELOR, FOR ICU USE ONLY Notes: (Same as: Potassium Chloride) Start Date: 06/11/17 Stop Date: 06/13/17 Status: Discontinued potassium chloride 20 mEq, 100 mL, Route: IVPB, Drug form: INJ, PRN, Dosing Weight 86.9, kg, PRN Abnormal Lab Result, Via central line, Start date: 06/11/17 0:52:00 ADDICTION COUNSELOR, Duration: 30 day, Stop date: 07/11/17 0:51:00 ADDICTION COUNSELOR, FOR ICU USE ONLY Notes: (Same as: KCL) Infuse no faster than 10 mEq/hr if given peripherally. Start Date: 06/11/17 Stop Date: 06/13/17 Status: Discontinued potassium chloride 10 mEq oral tablet, extended release 10 mEq, 1 tab, Route: PO, Drug form: ERTAB, BID, Dosing Weight 86.9, kg, Start date: 06/11/17 9:00:00 ADDICTION COUNSELOR, Duration: 30 day, Stop date: 07/11/17 8:59:00 ADDICTION COUNSELOR Notes: (Same as: K-Dur 10)"Do Not Crush" With food and full glass of water Start Date: 06/11/17 Stop Date: 06/13/17 Status: Discontinued potassium phosphate + Sodium Chloride 0.9% IV 250 mL 30 mmol, 10 mL, Route: IVPB, PRN, Dosing Weight 86.9, kg, PRN Abnormal Lab Result, Start date: 06/11/17 0:52:00 ADDICTION COUNSELOR, Duration: 30 day, Stop date: 07/11/17 0:51:00 ADDICTION COUNSELOR, FOR ICU USE ONLY Notes: (Same as: K Phosphate.) 1 mMol phoshate has 1.47 mEq potassium Infuse over 4 hours Start Date: 06/11/17 Stop Date: 06/13/17 Status: Discontinued potassium phosphate + Sodium Chloride 0.9% IV 250 mL 45 mmol, 15 mL, Route: IVPB, PRN, Dosing Weight 86.9, kg, PRN Abnormal Lab Result, Start date: 06/11/17 0:52:00 ADDICTION COUNSELOR, Duration: 30 day, Stop date: 07/11/17 0:51:00 ADDICTION COUNSELOR, FOR ICU USE ONLY Notes: (Same as: K Phosphate.) 1 mMol phoshate has 1.47 mEq potassium Infuse over 4 hours Start Date: 06/11/17 Stop Date: 06/13/17 Status: Discontinued potassium phosphate + Sodium Chloride 0.9% IV 250 mL 15 mmol, 5 mL, Route: IVPB, PRN, Dosing Weight 86.9, kg, PRN Abnormal Lab Result , Start date: 06/11/17 0:52:00 ADDICTION COUNSELOR, Duration: 30 day, Stop date: 07/11/17 0:51: 00 ADDICTION COUNSELOR, FOR ICU USE ONLY Notes: (Same as: K Phosphate.) 1 mMol phoshate has 1.47 mEq potassium Infuse over 4 hours Start Date: 06/11/17 Stop Date: 06/13/17 Status: Discontinued potassium phosphate-sodium phosphate 250 mg-280 mg-160 mg oral powder for reconstitution 2 pkt, Route: PO, Drug Form: PDR/REC, Dosing Weight 86.9, kg, PRN, PRN Abnormal Lab Result, FOR ICU USE ONLY, Start date: 06/11/17 0:52:00 ADDICTION COUNSELOR, Duration: 30 day , Stop date: 07/11/17 0:51:00 ADDICTION COUNSELOR Notes: (Same as: Phos-NaK) Each 1.5 gm pkt has 250mg phosphorous. Mix w/2.5oz water and stir. Start Date: 06/11/17 Stop Date: 06/13/17 Status: Discontinued sodium phosphate + Sodium Chloride 0.9% IV 250 mL 45 mmol, 15 mL, Route: IVPB, PRN, Dosing Weight 86.9, kg, PRN Abnormal Lab Result, Start date: 06/11/17 0:52:00 ADDICTION COUNSELOR, Duration: 30 day, Stop date: 07/11/17 0:51:00 ADDICTION COUNSELOR, FOR ICU USE ONLY Start Date: 06/11/17 Stop Date: 06/13/17 Status: Discontinued sodium phosphate + Sodium Chloride 0.9% IV 250 mL 15 mmol, 5 mL, Route: IVPB, PRN, Dosing Weight 86.9, kg, PRN Abnormal Lab Result , Start date: 06/11/17 0:52:00 ADDICTION COUNSELOR, Duration: 30 day, Stop date: 07/11/17 0:51: 00 ADDICTION COUNSELOR, FOR ICU USE ONLY Start Date: 06/11/17 Stop Date: 06/13/17 Status: Discontinued sodium phosphate + Sodium Chloride 0.9% IV 250 mL 30 mmol, 10 mL, Route: IVPB, PRN, Dosing Weight 86.9, kg, PRN Abnormal Lab Result, Start date: 06/11/17 0:52:00 ADDICTION COUNSELOR, Duration: 30 day, Stop date: 07/11/17 0:51:00 ADDICTION COUNSELOR, FOR ICU USE ONLY Start Date: 06/11/17 Stop Date: 06/13/17 Status: Discontinued tamsulosin 0.4 mg, 1 cap, Route: PO, Drug form: CAP, Bedtime, Dosing Weight 86.9, kg, Start date: 06/11/17 21:00:00 ADDICTION COUNSELOR, Duration: 30 day, Stop date: 07/11/17 20:59: 00 ADDICTION COUNSELOR Notes: (Same As: Flomax) "Do Not Crush" Start Date: 06/11/17 Stop Date: 06/13/17 Status: Discontinued tamsulosin 0.4 mg, 1 cap, Route: PO, Drug form: CAP, Bedtime, Dosing Weight 86.9, kg, Start date: 06/11/17 21:00:00 ADDICTION COUNSELOR, Duration: 30 day, Stop date: 07/11/17 20:59: 00 ADDICTION COUNSELOR Notes: (Same As: Flomax) "Do Not Crush" Start Date: 06/11/17 Stop Date: 06/11/17 Status: Canceled tamsulosin 0.4 mg oral capsule 0.4 mg=1 cap, PO, Bedtime, # 30 cap, 0 Refill(s) Start Date: 06/10/17 Status: Ordered Results BLOOD BANK RESULTS 1 2 3 Most recent to oldest [Reference Range]: B POS *Unknown* (06/11/17 1:07 AM) ABO/Rh Negative (06/11/17 1:07 AM) Antibody Scrn ELECTROLYTES 1 2 3 Most recent to oldest [Reference Range]: 143 mEq/L (06/13/17 2:28 AM) 145 mEq/L (06/12/17 4:26 AM) 146 mEq/L *HI* (06/11/17 4:47 AM) Sodium Lvl [135-145 mEq/L] 4.0 mEq/L (06/13/17 2:28 AM) 3.6 mEq/L (06/12/17 4:26 AM) 3.7 mEq/L (06/11/17 4:47 AM) Potassium Lvl [3.5-5.1 mEq/L] 107 mEq/L (06/13/17 2:28 AM) 110 mEq/L *HI* (06/12/17 4:26 AM) 110 mEq/L *HI* (06/11/17 4:47 AM) Chloride Lvl [95-109 mEq/L] 26 mEq/L (06/13/17 2:28 AM) 25 mEq/L (06/12/17 4:26 AM) 25 mEq/L (06/11/17 4:47 AM) CO2 [24-32 mEq/L] 14.0 mEq/L (06/13/17 2:28 AM) 13.6 mEq/L (06/12/17 4:26 AM) 14.7 mEq/L (06/11/17 4:47 AM) AGAP [10.0-20.0 mEq/L] CHEM PANEL 1 2 3 Most recent to oldest [Reference Range]: 1.08 mg/dL (06/13/17 2:28 AM) 0.96 mg/dL (06/12/17 4:26 AM) 1.23 mg/dL (06/11/17 4:47 AM) Creatinine Lvl [0.50-1.40 mg/dL] 63 mL/min/1.73m2 1 *NA* (06/13/17 2:28 AM) 72 mL/min/1.73m2 2 *NA* (06/12/17 4:26 AM) 54 mL/min/1.73m2 3 *NA* (06/11/17 4:47 AM) eGFR 26 mg/dL *HI* (06/13/17 2:28 AM) 25 mg/dL *HI* (06/12/17 4:26 AM) 31 mg/dL *HI* (06/11/17 4:47 AM) BUN [7-22 mg/dL] 99 mg/dL (06/13/17 2:28 AM) 80 mg/dL (06/12/17 4:26 AM) 93 mg/dL (06/11/17 4:47 AM) Glucose Lvl [70-99 mg/dL] 9.1 mg/dL (06/13/17 2:28 AM) 9.0 mg/dL (06/12/17 4:26 AM) 9.2 mg/dL (06/11/17 4:47 AM) Calcium Lvl [8.5-10.5 mg/dL] 3.4 mg/dL (06/13/17 2:28 AM) 3.4 mg/dL (06/12/17 4:26 AM) 3.8 mg/dL (06/11/17 4:49 AM) Phosphorus [2.5-4.5 mg/dL] 2.2 mg/dL (06/13/17 2:28 AM) 2.1 mg/dL (06/12/17 4:26 AM) 2.2 mg/dL (06/11/17 4:49 AM) Magnesium Lvl [1.8-2.4 mg/dL] 1Result Comment: The eGFR is calculated [...] should be multiplied by the estimated BMI. CARDIAC ENZYMES 1 2 3 Most recent to oldest [Reference Range]: 0.02 ng/mL (06/10/17 8:07 PM) Troponin-I [0.00-0.40 ng/mL] LIPIDS 1 2 3 Most recent to oldest [Reference Range]: 2.89 *LOW* (06/11/17 12:59 AM) CHD Risk [4.00-7.30] 78 mg/dL (06/11/17 12:59 AM) Chol [<=199 mg/dL] 77 mg/dL (06/11/17 12:59 AM) Trig [<=149 mg/dL] 27 mg/dL *LOW* (06/11/17 12:59 AM) HDL [>=61 mg/dL] 36 mg/dL (06/11/17 12:59 AM) LDL (Calculated) [<=99 mg/dL] 15 *NA* (06/11/17 12:59 AM) VLDL SPECIAL CHEMISTRY 1 2 3 Most recent to oldest [Reference Range]: 5.5 % (06/11/17 12:59 AM) Hgb A1C [<=5.6 %] PARATHYROID PROFILE 1 2 3 Most recent to oldest [Reference Range]: 1.22 mMol/L (06/13/17 2:28 AM) 1.14 mMol/L (06/12/17 4:26 AM) 1.20 mMol/L (06/11/17 12:59 AM) Ca Ion WB [1.05-1.25 mMol/L] 1.24 mMol/L (06/13/17 2:28 AM) 1.15 mMol/L (06/12/17 4:26 AM) 1.19 mMol/L (06/11/17 12:59 AM) Ca Norm WB [1.05-1.25 mMol/L] HEMATOLOGY 1 2 3 Most recent to oldest [Reference Range]: 5.0 K/CMM (06/13/17 2:28 AM) 4.2 K/CMM (06/12/17 4:26 AM) 4.6 K/CMM (06/11/17 12:59 AM) WBC [3.7-10.4 K/CMM] 3.80 M/CMM *LOW* (06/13/17 2:28 AM) 3.66 M/CMM *LOW* (06/12/17 4:26 AM) 3.64 M/CMM *LOW* (06/11/17 12:59 AM) RBC [4.70-6.10 M/CMM] 11.3 g/dL *LOW* (06/13/17 2:28 AM) 11.0 g/dL *LOW* (06/12/17 4:26 AM) 10.9 g/dL *LOW* (06/11/17 12:59 AM) Hgb [14.0-18.0 g/dL] 33.1 % *LOW* (06/13/17 2:28 AM) 32.4 % *LOW* (06/12/17 4:26 AM) 32.3 % *LOW* (06/11/17 12:59 AM) Hct [42.0-54.0 %] 87.2 fL (06/13/17 2:28 AM) 88.5 fL (06/12/17 4:26 AM) 88.8 fL (06/11/17 12:59 AM) MCV [80.0-94.0 fL] 29.7 pg (06/13/17 2:28 AM) 30.0 pg (06/12/17 4:26 AM) 29.9 pg (06/11/17 12:59 AM) MCH [27.0-31.0 pg] 34.1 g/dL (06/13/17 2:28 AM) 33.9 g/dL (06/12/17 4:26 AM) 33.7 g/dL (06/11/17 12:59 AM) MCHC [32.0-36.0 g/dL] 12.7 % (06/13/17 2:28 AM) 12.9 % (06/12/17 4:26 AM) 12.7 % (06/11/17 12:59 AM) RDW [11.5-14.5 %] 83 K/CMM *LOW* (06/13/17 2:28 AM) 73 K/CMM *LOW* (06/12/17 4:26 AM) 76 K/CMM *LOW* (06/11/17 12:59 AM) Platelet [133-450 K/CMM] 11.4 fL *HI* (06/13/17 2:28 AM) 11.6 fL *HI* (06/12/17 4:26 AM) 11.1 fL *HI* (06/11/17 12:59 AM) MPV [7.4-10.4 fL] 49.5 % (06/13/17 2:28 AM) 48.4 % (06/12/17 4:26 AM) 56.6 % (06/11/17 12:59 AM) Segs [45.0-75.0 %] 37.2 % (06/13/17 2:28 AM) 39.2 % (06/12/17 4:26 AM) 32.9 % (06/11/17 12:59 AM) Lymphocytes [20.0-40.0 %] 10.4 % (06/13/17 2:28 AM) 9.7 % (06/12/17 4:26 AM) 7.9 % (06/11/17 12:59 AM) Monocytes [2.0-12.0 %] 2.2 % (06/13/17 2:28 AM) 2.3 % (06/12/17 4:26 AM) 2.0 % (06/11/17 12:59 AM) Eosinophils [0.0-4.0 %] 0.7 % (06/13/17 2:28 AM) 0.4 % (06/12/17 4:26 AM) 0.6 % (06/11/17 12:59 AM) Basophils [0.0-1.0 %] 2.5 K/CMM (06/13/17 2:28 AM) 2.0 K/CMM (06/12/17 4:26 AM) 2.6 K/CMM (06/11/17 12:59 AM) Segs-Bands # [1.5-8.1 K/CMM] 1.9 K/CMM (06/13/17 2:28 AM) 1.6 K/CMM (06/12/17 4:26 AM) 1.5 K/CMM (06/11/17 12:59 AM) Lymphocytes # [1.0-5.5 K/CMM] 0.5 K/CMM (06/13/17 2:28 AM) 0.4 K/CMM (06/12/17 4:26 AM) 0.4 K/CMM (06/11/17 12:59 AM) Monocytes # [0.0-0.8 K/CMM] 0.1 K/CMM (06/13/17 2:28 AM) 0.1 K/CMM (06/12/17 4:26 AM) 0.1 K/CMM (06/11/17 12:59 AM) Eosinophils # [0.0-0.5 K/CMM] 16.7 seconds *HI* (06/11/17 12:59 AM) PT [12.0-14.7 seconds] 1.34 *HI* (06/11/17 12:59 AM) INR [0.85-1.17] Immunizations Given and Recorded Vaccine Date Status Refusal Reason pneumococcal 13-valent vaccine 06/11/16 Given Not Given Vaccine Date Status Refusal Reason pneumococcal 23-valent vaccine1 06/13/17 Not Given Patient Refuses 1Result Comment: pt stated that he had already gotten his pnumonia vaccine recently. Procedures Procedure Date Related Diagnosis Body Site TURP - Transurethral resection of prostate Social History Social History Type Response Smoking Status Never smoker; Exposure to Tobacco Smoke None; Cigarette Smoking Last 365 Days Unable to obtain; Reg Smoking Cessation Counseling No Assessment and Plan Extracted from: Title: CCU Progress Note Author: Luis Figueroa MD Date: 06/13/17 Vital Signs (last 24 hrs) Last Charted Temp Oral 97.6 DegF (JUN 13 04:00) Heart Rate Apical 60 bpm (JUN 13 06:00) Resp Rate 16 BRMIN (JUN 13 06:00) SBP 138 mmHg (JUN 13 06:00) DBP 63 mmHg (JUN 13 06:00) SpO2 97 % (JUN 13 06:00) , Measurements from flowsheet : Measurements 06/10/2017 22:47 Heparin Dosing Weight (kg) 86.90 06/10/2017 22:46 Height 182.88 cm Height Collection Method Stated Weight 86.9 kg Dosing Weight Difference Percent -2.459 % Dosing Weight Collection Method Measured Body Surface Area 2.1011 m2 Body Mass Index 25.98 m2 06/10/2017 19:30 Heparin Dosing Weight (kg) 89.09 06/10/2017 19:27 Height 182.88 cm Height Collection Method Stated Weight 89.091 kg Dosing Weight Difference Percent 3.158 % Dosing Weight Collection Method Measured Body Surface Area 2.1274 m2 Body Mass Index 26.64 m2 Labs Most Recent Results Previous Results Previous Results Previous Results WBC 5.0 (JUN 13) 4.2 (JUN 12) 4.6 (JUN 11) 6.0 (JUN 10) Hgb L 11.3 (JUN 13) L 11.0 (JUN 12) L 10.9 (JUN 11) L 11.7 (NOV 17) Hct L 33.1 (JUN 13) L 32.4 (JUN 12) L 32.3 (MAY 18) L 36.3 (MAY 17) Plt L 83 (JUN 13) L 73 (MAY 19) L 76 (MAY 18) L 92 (JUN 10) Na 143 (JUN 13) 145 (JUN 12) H 146 (MAY 18) 145 (MAY 18) K 4.0 (JUN 13) 3.6 (JUN 12) 3.7 (MAY 18) 3.5 (MAY 18) CO2 26 (JUN 13) 25 (JUN 12) 25 (MAY 18) 26 (MAY 18) Cl 107 (JUN 13) H 110 (JUN 12) H 110 (MAY 18) 109 (JUN 11) Cr 1.08 (JUN 13) 0.96 (JUN 12) 1.23 (JUN 11) 1.35 (JUN 11) BUN H 26 (JUN 13) H 25 (JUN 12) H 31 (JUN 11) H 31 (JUN 11) Glucose Random 99 (JUN 13) 80 (JUN 12) 93 (JUN 11) H 144 (JUN 11) Mg 2.2 (JUN 13) 2.1 (JUN 12) 2.2 (JUN 11) 2.1 (JUN 11) Phos 3.4 (JUN 13) 3.4 (JUN 12) 3.8 (JUN 11) 3.5 (JUN 11) Ca 9.1 (JUN 13) 9.0 (JUN 12) 9.2 (JUN 11) 9.3 (JUN 11) PT H 16.7 (JUN 11) -- -- -- INR H 1.34 (JUN 11) -- -- -- Troponin 0.02 (JUN 10) -- -- -- Impression and Plan Assessment: Mr. Torres is 86 years old man, with h/o atrial fibrillation(On watchman device 33mm device in [place] in 02/2015 ) , CHF (diastolic predominantly- EF- 60-65 %), significant TR, MR and s/p PPM, s/p cardiac arrest in 09/2012 (s/ p AICD), recurrent non-sustained VTs leading to syncope and pre-syncope, here with SOB, B/L lower extremity edema and dizziness for the past 3weeks admitted for decompensated heart failure for diuresis. Plan: Neuro: [id number] ##Mild cognitive impairment - Continue donepezil Cardio ##Chronic diastolic HF- Decompensated - Echo on 06/08/2017 (preserved EF- 60-65%, diastolic dysfunction, mod TR, mod MR) - Mild pulmonary edema - B/L basal crepitations - B/L 1+ pedal edema - Cath report from [facility] center and [facility] 2011: no obstructive CAD - S/p AICD/ PPM after cardiac arrest in 09/2012 - Cont. Furosemide 40 mg IV bid, Net negative ~1.5L today. - Cont. Carvedilol 6.25 mg po bid - Cont. 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 - He was taken off anticoagulation ( was on coumadin) - Started Lovenox at therapeutic dose. - ECHO with Definately pending. ##S/p AICD/ PPM: -Follows with Dr. Pierre - Cont. Carvedilol 6.125 mg po bid ##HTN: - Cont. Carvedilol 6. 25 mg po bid - Cont. Furosemide 40 mg IV bid - Cont. Losartan 50 po bid -Will add 5mg amolodpine at 1800 for better overnight bp control. ##Atrial fibrillation: - Successful ANNA Watchman implantation and ASD closure in 02/2015 - The Watchman device is nicely seated with no shayna-device leak- as per echo on 06/08/2017 - a filamentous mobile mass/thrombus on his PPM lead in the [facility] since 2014 TTE - The new TTE on 06/08/2017 - cannot rule out the clot on the pacemaker lead . - He does not want to cont. Warfarin, which was discontinued( 6 months back) Clopidogrel was also discontinued - Started Lovenox therapeutic dose - On ASA 325 mg- will continue - CHADSVASc- 4 - HASBLED-2 ##Mod to severe TR; moderate MR; diastolic HF: - S/p AICD - Mod TR due to annular dilatation - Cont. Furosemide 40 mg IV bid ##VT: - Syncopal episode, self- terminating - S/p AICD interrogation - Cont. amiodarone 200 mg daily for now - Cont. Carvedilol 6. 25 mg po bid - EP consulted Respiratory ##Mild pulmonary edema - b/l mild basal crackles - PATRICK - will continue lasix 40 mg IV bid - Daily input out chart - daily body weight GI -On pantoprazole Renal / - Cr - 1.4 ( last cr- 1.3 ( 02/2017)) - BUN - 28 - GFR - 48 -Strict Is/Os ## BPH -S/p cystoscopic TURP -06/10/2016 - continue tamsulosin and finasteride Heme Hb - 10.7 PLT - 92 ID - afebrile -wbc- 4.6 Endo [id number] Code : Full code Prophylaxis : Pantoprazole and lovenox Diet: Adult heart healthy diet Dispo : Pending diuresis CCU/CIMU Daily Patient Safety Checklist Yes No Mechanical Ventilation? _ _ 1. Sedation level addressed? _ _ 2. Sedation holiday performed if indicated? _ _ 3. Adequate pain control? _ _ 4. Delirium assessment done and addressed? _ _ 5. Restraints assessed/reordered? _ _ 6. PUD ppx? _ _ Blood Stream Infection Prevention: 1.Central Line necessity addressed? _ _ _ vasoactive agents, _ TPN, _loss of venous access 2.Central Line duration > 5 days? _ _ CAUTI Prevention: 1. Sotomayor necessity addressed? _ _ _ complete bedrest, _ urinary retention,_ 2. Sotomayor duration > 3 days? _ _ DVT Prevention: 1. VTE Advisor Completed on admission? _ _ 2.DVT ppx? _ _ Nutrition 1. Enteral Feeding within 48h? _ _ Blood Glucose Control 1. 60 mg/dl< BG < 200mg/dl? YES _ CAD/CHF/PCI Requirements: 1.ASA post VT? YES _ 2.ACEi + BB in CHF? YES _ 3. Statinin CAD? _ _ 4. DAPT post-PCI? _ _ 5. Renal Protection Fluid Protocol Post-PCI? _ _ Discharge Planning 1. PT/OT? _ _ 2. Cardiac Rehab? _ _ 3. Case Management/Social Work Consult? _ _ Luis Figueroa MD MPH PGY-3, Internal Medicine-Pediatrics Addendum The patient was seen and examined with the resident. The relevant lab results, imaging and by Soledad, EKGs were personally reviewed, and the medications were reconciled. I agree with above Riley mentioned assessment and plan. on -- Pt with HFpEF, admitted with HF exacerbation 06/13/2017 -- Now appear to be stable, d/c home today 11:17
--- OUTSIDE RECORDS SUMMARY | 2017-12-26 12:25 | XMS REPORT | Summary of Care ---
Author Author Zuleika Santana M.A. Unknown Address [facility] Phone Unavailable Care Team Providers Care Business Coordinator Name Role Phone TARIK Self, ERIC Unavailable Unavailable SOLEDAD Self, RILEY Unavailable Unavailable RADHA Self, PRAVEEN Unavailable Unavailable TARIK HUBBARD [place], ERIC Harding Unavailable Unavailable Soledad HUBBARD, Riley Unavailable Unavailable Unavailable Unavailable Functional Status Name Dates Details Functional status health issues are not documented Status: Name Dates Details Cognitive status health issues are not documented Status: Problems Name Dates Details Abnormal laboratory test result (796.4, R89.9) Status: Active Ascites (789.59, R18.8) Status: Active Constipation (564.00, K59.00) Status: Active Depression screen (V79.0, Z13.89) Status: Active Dizziness (780.4, R42) Status: Active Encounter for mini-mental status examination Status: Active Eye irritation (379.99, H57.8) Status: Active Flu vaccine need (V04.81, Z23) Status: Active Hearing impaired (389.9, H91.90) Status: Active Left anterior knee pain (719.46, M25.562) Status: Active Meniere's disease (386.00, H81.09) Status: Active Need for pneumococcal vaccination (V03.82, Z23) Status: Active Nocturia more than twice per night (788.43, R35.1) Status: Active 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, I34.0) Status: Active On potassium wasting diuretic therapy (V58.69, Z79.899) Status: Active Osteoarthritis of knee, unspecified (715.36, M17.10) Status: Active Preop examination (V72.84, Z01.818) Status: Active Scalp laceration (873.0, S01.01XA) Status: Active 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) Status: Active Severe tricuspid regurgitation (397.0, I07.1) Status: Active Shortness of breath (786.05, R06.02) Status: Active Syncope (780.2, R55) Status: Active Thrombocytopenia (287.5, D69.6) Status: Active Urgency of urination (788.63, R39.15) Status: Active Ventricular tachycardia (427.1, I47.2) Status: Active Vertigo (780.4, R42) Status: Active At high risk for falls (V15.88, Z91.81) Status: Active Frequent urination (788.41, R35.0) Status: Active Cervicalgia (723.1, M54.2) Status: Active Neck sprain and strain (847.0, S13.9XXA) Status: Active Fatigue (780.79, R53.83) Status: Active Benign prostatic hyperplasia (600.00, N40.0) Status: Active 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, 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) Status: Active Mild cognitive impairment (331.83, G31.84) Status: Active Bilateral edema of lower extremity (782.3, R60.0) Status: Active Weight loss (783.21, R63.4) Status: Active Insomnia (780.52, G47.00) Status: Active Essential hypertension (401.9, I10) Status: Active Chronic diastolic congestive heart failure (428.32, I50.32) Status: Active Atrial fibrillation (427.31, I48.91) Status: Active AICD (automatic cardioverter/defibrillator) present (V45.02, Z95.810) Status: Active Anorexia (783.0, R63.0) Status: Active Medications Name Dates Details Furosemide 40 MG Oral Tablet TAKE 1 TABLET BY MOUTH TWICE A DAY MAY TAKE 2 TABLETS TWICE A DAY Quantity: 90 ERIC MONTANEZ M.D. * Start : 11-Nov-2017 Active Losartan Potassium 100 MG Oral Tablet TAKE 1 TABLET DAILY * Quantity: 30 Refills: 0 ERIC MONTANEZ M.D. * Start : 28-Nov-2017 Active Vitamin B-12 1000 MCG Oral Tablet TAKE 1 TABLET DAILY * Refills: 0 Active [place] 3 CAPS TAKE 1 CAPSULE TWICE DAILY * Refills: 0 Active Amiodarone HCl - 200 MG Oral Tablet TAKE 1 TABLET BY MOUTH EVERY DAY * Quantity: 90 Refills: 2 SOLEDAD SelfRILEY * Start : 29-Jun-2017 Active Carvedilol 6.25 MG Oral Tablet TAKE 1 TABLET BY MOUTH TWICE A DAY WITH MEALS. * Quantity: 60 Refills: 5 PRAVEEN GARCIA M.D. * Start : 17-Aug-2017 Active Finasteride 5 MG Oral Tablet TAKE 1 TABLET DAILY * Quantity: 90 Refills: 1 ERIC MONTANEZ M.D. * Start : 11-Jun-2015 Active Potassium Chloride Kasie ER 10 MEQ Oral Tablet Extended Release TAKE 1 TABLET BY MOUTH ONCE DAILY. * Quantity: 90 Refills: 0 ERIC MONTANEZ M.D. * Start : 07-Nov-2017 Active Aspirin Low Dose TABS TAKE 81 MG Twice daily * Refills: 0 Active Centrum Silver TABS TAKE 1 TABLET DAILY. * Refills: 0 Active Vitamin D3 2000 UNIT Oral Tablet TAKE 1 TABLET DAILY * Refills: 0 Active Sildenafil Citrate TABS TAKE 100 MG Daily PRN * Refills: 0 Active Imodium A-D TABS TAKE NEEDED. * Refills: 0 Active Donepezil HCl - 5 MG Oral Tablet TAKE 1 TABLET BY MOUTH DAILY needs office visit * Quantity: 30 Refills: 5 PRAVEEN GARCIA M.D. * Start : 17-Aug-2017 Active Doxazosin Mesylate 8 MG Oral Tablet TAKE 1 TABLET DAILY DIRECTED. * Refills: 0 Active 100 Tablet Bottle Mirtazapine 30 MG Oral Tablet TAKE 1 TABLET AT BEDTIME. * Quantity: 30 Refills: 1 PRAVEEN GARCIA M.D. 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, 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 Procedures Procedure Dates Details History of Appendectomy Completed History of Tonsillectomy Completed History of Knee Surgery Right Completed History of Cholecystectomy Completed History of Pacemaker Placement Completed History of Biopsy Skin Completed History of Knee Replacement Completed History of Cardio-defib Pulse Generator Implantation Date Completed History of Pacemaker Permanent Placement Completed History of Prostate Surgery Completed Immunization Name Dates Details Pneumococcal polysaccharide vaccine, 23 valent on: Jul-2009 Zostavax 87942 UNT/0.65ML Subcutaneous Solution Reconstituted on: Jul-2011 Influenza on: 25-Mar-2014 Prevnar 13 Intramuscular Suspension Lot #: [id number] on: 15-Jan-2015 Fluzone INJ Lot #: [id number] on: 22-Apr-2015 Fluzone High-Dose SUSP Lot #: [id number] on: 13-May-2016 Fluzone High-Dose 0.5 ML Intramuscular Suspension Prefilled Syringe Lot #: [id number] on: 02-May-2017 Family History Name Dates Details Family history of lung cancer (V16.1, Z80.1) Status: Active Name Dates Details Family history of [place] (myocardial infarction) (410.90, I21.9) Status: Active Name Dates Details Family history of cardiac disorder (V17.49, Z82.49) Status: Active Family history of [place] (myocardial infarction) (410.90, I21.9) Status: Active Name Dates Details Family history of lung cancer (V16.1, Z80.1) Status: Active Name Dates Details Family history of Alzheimer's disease (V17.2, Z82.0) Status: Active Social History Name Dates Details - Status: Name Dates Details Former smoker Vital Signs Date Test Result Details No Known Vitals to report Results Date Description Value Details Results not documented Plan of Care Name Dates Details Planned Observations Planned Goals not documented Planned Encounters Appointment; CHIKI RAYMOND M.D. On: 30-Dec-2017 9:30 Appointment; RILEY KHAN M.D. On: 02-Jan-2018 11:00 Appointment; ERIC MONTANEZ M.D. On: 02-Jan-2018 13:30 Appointment; RILEY KHAN M.D. On: 11-Jan-2018 9:00 Interventions Provided Medication Changes* Losartan Potassium 100 MG Oral Tablet - Renew Instructions Name Dates Details Instructions not documented Encounters Appointment; ERIC MONTANEZ M.D. Encounter Diagnosis: Problem not documented On: 10-Feb-2016 14:30 Appointment; KOKI HERNANDEZ M.D. Encounter Diagnosis: Problem not documented On: 17-Mar-2016 13:00 Appointment; RILEY KHAN M.D. Encounter Diagnosis: Problem not documented On: 14-Apr-2016 10:20 Appointment; ERIC MONTANEZ M.D. Encounter Diagnosis: Problem not documented On: 13-May-2016 8:15 Appointment; CHIKI RAYMOND M.D. Encounter Diagnosis: Problem not documented On: 14-May-2016 9:30 Appointment; KOKI HERNANDEZ M.D. Encounter Diagnosis: Problem not documented On: 19-May-2016 11:30 Appointment; RILEY KHAN M.D. Encounter Diagnosis: Problem not documented On: 14-Jul-2016 9:20 Appointment; ERIC MONTANEZ M.D. Encounter Diagnosis: Problem not documented On: 03-Aug-2016 14:30 Appointment; REIC MONTANEZ M.D. Encounter Diagnosis: Problem not documented On: 23-Aug-2016 11:45 Appointment; ERIC MONTANEZ M.D. Encounter Diagnosis: Problem not documented On: 06-Sep-2016 14:00 Appointment; CHIKI RAYMOND M.D. Encounter Diagnosis: Problem not documented On: 26-Nov-2016 9:00 Appointment; CHIKI RAYMOND M.D. Encounter Diagnosis: Problem not documented On: 17-Dec-2016 10:45 Appointment; RILEY KHAN M.D. Encounter Diagnosis: Problem not documented On: 12-Jan-2017 9:00 Appointment; ERIC MONTANEZ M.D. Encounter Diagnosis: Problem not documented On: 01-Feb-2017 9:45 Appointment; ERIC MONTANEZ M.D. Encounter Diagnosis: Problem not documented On: 02-May-2017 9:15 [facility] En[facility] Diagnosis: Problem not documented On: 08-Jun-2017 15:00 Appointment; CHIKI RAYMOND M.D. Encounter Diagnosis: Problem not documented On: 01-Jul-2017 9:45 Appointment; RILEY KHAN M.D. Encounter Diagnosis: Problem not documented On: 04-Jul-2017 9:40 Appointment; PRAVEEN GARCIA M.D. Encounter Diagnosis: Problem not documented On: 02-Aug-2017 11:45
[2017-12-26] MEDS ORDERED: FINASTERIDE5 MG (12:44)
[2017-12-26] MEDS ORDERED: AMIODARONE HCL200 MG (12:44)
[2017-12-26] MEDS ORDERED: MIRTAZAPINE30 MG (12:44)
[2017-12-26] MEDS ORDERED: LOSARTAN POTAS100 MG (12:44)
[2017-12-26] MEDS ORDERED: DONEPEZIL HCL5 MG (12:44)
[2017-12-26] MEDS ORDERED: HYDROCODONE/APAP 5MG-325MG TAB PO ONE (13:00)
--- NOTE | 2017-12-26 13:46 | Diagnostic Imaging Report ---
Exams: Head and cervical spine CTs without IV contrast History: Trauma, fall, anticoagulated, rule out bleed. Comparison studies: Head CT 09/12/2015. Technique: Axial images were obtained from the brain and cervical spine. Coronal and sagittal images reconstructed from the axial data. Intravenous contrast: None Findings: Head CT: Scalp: No abnormalities. Bones: No fractures, blastic or lytic lesions. Extra-axial spaces: No masses. No fluid collections. Brain sulci: Mildly prominent. Ventricles: Mild compensatory dilatation. No hydrocephalus. Parenchyma: No mass, acute hemorrhage or acute cortical vascular insults. Subtle hypodensities hypodensities in the supratentorial white matter are nonspecific but most compatible with chronic small vessel ischemic changes. Sellar/suprasellar region: No abnormalities. Craniocervical junction: The foramen magnum is patent. No Chiari one malformation. Cervical spine CT: Fractures: None. Soft tissues: No gross abnormalities. Atlantoaxial articulation: Intact. Alignment: Straightened upper cervical curvature with mild cervical kyphosis centered at C5-C6. No acute subluxations. Cervicomedullary junction: No abnormalities. The foramen magnum is patent. Vertebrae: No infection or neoplasm. Degenerative changes: Moderate degenerative changes at the atlantoaxial articulation. Moderately degenerated C5-C6 disc and mildly degenerated C6-C7 discs with disc osteophyte complexes which result in moderate canal stenosis at C5-C6 and mild canal stenosis at C6-C7. Varying degrees of multilevel moderate to severe facet arthrosis. Multilevel uncovertebral facet arthrosis result in multilevel foraminal stenosis (mild left at C2-C3, moderate left and mild right at C3-C4 severe bilaterally at C5-C6 and severe left and moderate right at C6-C7). Included lung apices: Mild nonspecific scarring at the lung apices with right azygos fissure. Focal extraluminal gas at the right tracheoesophageal groove at the thoracic inlet may reflect incidental tracheal diverticulum. Incidental findings: Atherosclerotic calcifications in the cervical carotid bulbs and in the carotid siphons. Mild chronic inflammatory changes in the left posterior mastoids. Partially imaged bilateral implanted intracardiac lead wires. IMPRESSION: Head CT: 1. No acute abnormalities. 2. No changes from the previous head CT of 09/12/2015. 3. Mild generalized volume loss with mild chronic microvascular ischemic changes. Cervical spine CT: 1. No cervical spine fracture or acute subluxation. 2. Multilevel degenerative changes as described. 3. Cannot evaluate ligament, spinal cord and or vascular abnormalities on the basis of this examination. Signed by: Dr. Elmer Schmid M.D. on 12/26/2017 1:42 PM
[2017-12-26 14:16] LABS: BASOPHILS % 0.4 % (0.0-1.0); EOSINOPHILS # (AUTO) 0.2 (0.0-0.4); EOSINOPHILS % 2.1 % (0.0-6.0); HEMATOCRIT 40.2 % (38.2-49.6); HEMOGLOBIN 13.7 g/dL (14.0-18.0); LYMPHOCYTES # (AUTO) 2.3 (1.0-3.2); LYMPHOCYTES % 28.2 % (18.0-39.1); MEAN CORPUSCULAR HEMOGLOBIN 32.1 pg (28-32); MEAN CORPUSCULAR HGB CONC 34.1 g/dL (31-35); MEAN CORPUSCULAR VOLUME 94.1 fL (81-99); MONOCYTES # (AUTO) 0.5 (0.2-0.8); MONOCYTES % 6.4 % (4.4-11.3); NEUTROPHILS % 62.5 % (38.7-80.0); PLATELET COUNT 142 x10e3/uL (140-360); RED BLOOD COUNT 4.27 x10e6/uL (4.3-5.7); RED CELL DISTRIBUTION WIDTH 14.3 % (11.7-14.4)
[2017-12-26 14:30] LABS: INR 1.27; PROTHROMBIN TIME 14.9 seconds (11.9-14.5)
[2017-12-26 14:31] LABS: PARTIAL THROMBOPLASTIN TIME 31.8 seconds (23.8-35.5)
--- NOTE | 2017-12-26 14:37 | Diagnostic Imaging Report ---
PROCEDURE:ELBOW RIGHT COMPLETE TECHNIQUE:AP, lateral and oblique views right elbow in INDICATION:Right elbow pain status post fall COMPARISON:None. FINDINGS: Suspected nondisplaced radial head fracture. Small joint effusion. Regional skeleton otherwise intact. CONCLUSION: Questionable nondisplaced radial head fracture with associated small joint effusion.. Dictated by: Gage Billingsley M.D. on 12/26/2017 at 14:40 Electronically approved by: Gage Billingsley M.D. on 12/26/2017 at 14:40
--- NOTE | 2017-12-26 14:38 | Diagnostic Imaging Report ---
PROCEDURE:HUMERUS RIGHT 2+VIEWS TECHNIQUE:AP and lateral views right humerus totaling 3 radiographs INDICATION:Shoulder pain status post fall COMPARISON:None. FINDINGS: The right humerus and regional skeleton are intact and in anatomic alignment. Joint spaces are maintained. Mild degenerative change at the glenohumeral joint. Leads from an AICD partially imaged. CONCLUSION: No evidence of acute traumatic injury to the right humerus. Dictated by: Gage Billingsley M.D. on 12/26/2017 at 14:41 Electronically approved by: Gage Billingsley M.D. on 12/26/2017 at 14:41
[2017-12-26 14:39] LABS: ALBUMIN 4.3 g/dL (3.5-5.0); ALBUMIN/GLOBULIN RATIO 1.4 (0.8-2.0); ANION GAP 14.3 mmol/L (8-16); CALCIUM 9.9 mg/dL (8.4-10.2); CREATININE, SERUM 1.3 mg/dL (0.72-1.25); POTASSIUM 4.3 mmol/L (3.5-5.1)
[2017-12-26] MEDS ORDERED: LIDOCAINE HCL 1% LOCAL INJ 20 ML VIAL INJ ONE (15:15)
[2017-12-26] MEDS ORDERED: BACITRACIN ZINC 0.9GM TP ONE ×2 (16:00→16:15)
[2017-12-26 16:16] VITALS: BP 162/90
== END 2017-12-26 16:38 | disposition home or self-care (01) ==
LOC: ER 12:20
DX: S52.121A Displaced fracture of head of right radius, initial encounter for closed fracture (principal); S61.411A Laceration without foreign body of right hand, initial encounter; S00.81XA Abrasion of other part of head, initial encounter; S80.212A Abrasion, left knee, initial encounter; S80.211A Abrasion, right knee, initial encounter; W01.0XXA Fall on same level from slipping, tripping and stumbling without subsequent striking against object, initial encounter; Y93.01 Activity, walking, marching and hiking; Y92.480 Sidewalk as the place of occurrence of the external cause; I48.91 Unspecified atrial fibrillation; I25.10 Atherosclerotic heart disease of native coronary artery without angina pectoris; Z87.891 Personal history of nicotine dependence
CPT/HCPCS: 12001; 29125; 29240; 36415; 70450; 72125; 73060; 73080; 80053; 85025; 85610; 85730; 99284; J2001

== ENCOUNTER 2019-02-01 11:00 | Emergency (ER) | payer OTHER ==
[~2019-02-01] VITALS: Ht 180.3 cm; Wt 83.9 kg
[~2019-02-01 11:00] MED LIST changes: +AMIODARONE HCL200 MG; +DONEPEZIL HCL5 MG; +FINASTERIDE5 MG; +LOSARTAN POTAS100 MG; +MIRTAZAPINE30 MG
--- OUTSIDE RECORDS SUMMARY | 2019-02-01 11:06 | XMS REPORT | Continuity of Care Document ---
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 10/24/2014 [facility] Warfarin Sodium (Coumadin) 5 Mg Tablet, 7.5 Mg Oral Daily At [address] [facility] 10/24/2014 [facility] Warfarin Sodium 4 Mg Tablet, 5 Mg Oral Daily Active 10/24/2014 [facility] [id number] 325 Mg Tab Twice A Day Active [facility] 10/17/2014 [facility] Nrc7.5t 1 Ea Tab, 1 Ea Oral Every 4 Hours as needed for Pain Active [facility] 10/17/2014 [facility] Losartan Potassium 50 Mg Tablet, 50 Mg Oral Daily Active 2014 [facility] Multivitamin , Oral Daily Active 2014 [facility] Ubidecarenone (Co Q-10) 30 Mg Capsule, 30 Mg Oral Daily Active 2014 [facility] Magnesium Oxide (Magnesium) 500 Mg Capsule, 500 Mg Oral Daily Active 10/16/2012 [facility] Amiodarone Hcl 200 Mg Tablet Active [facility] Carvedilol (Coreg) 3.125 Mg Tab Twice A Day Active [facility] Donepezil Hcl 5 Mg Tablet Active [facility] Doxazosin Mesylate 2 Mg Tablet Bedtime Active [facility] Finasteride 5 Mg Tablet Active [facility] Fish Oil/Dha/Epa (Fish Oil 1,200 Mg Fish Oil) 1 Each Capsule Daily Active [facility] Furosemide 40 Mg Tablet Daily Active [facility] Herbal Vitality Bedtime Active [facility] Kava Root Extract (Kava Kava) 200 Mg Capsule Bedtime for Insomnia Active [facility] Lactobacillus Acidophilus (Acidophilus) 1 Each Tab.chew Daily Active [facility] Losartan Potassium 100 Mg Tablet Active [facility] Meclizine Hcl 12.5 Mg Tablet Every 6 Hours for Dizziness Active [facility] Mirtazapine 30 Mg Tablet Active [facility] Potassium Chloride (Klor-Con 10) 10 Meq Tablet.er Four Times Daily [facility] Verapamil Hcl (Verapamil Er) 240 Mg Cap24h.pel Bedtime Active [facility] Vitamin B Complex & Vit C No.4 (Super B Complex) 150 Mg Tablet Daily Active [facility] Vitamin B12 Daily Active [facility] Allergies, Adverse Reactions, Alerts No Known Medication Allergies Immunizations No Data Provided for This Section Results Order Name Results Value Reference Range Date Interpretation Comments Source Activated partial thromboplastin time (aPTT) in platelet poor plasma bycoagulation assay Activated partial thromboplastin time (aPTT) in platelet poor plasma bycoagulation assay 31.8 23.8 - 35.5 12/26/2017 [facility] Automated blood basophil count (count/volume) Automated blood basophil count (count/volume) 0.0 0.0 - 0.1 12/26/2017 [facility] Automated blood basophil count as percentage of total leukocytes Automated blood basophil count as percentage of total leukocytes 0.4 0.0 - 1.0 12/26/2017 [facility] Automated blood eosinophil count Automated blood eosinophil count 0.2 0.0 - 0.4 12/26/2017 [facility] Automated blood eosinophil count as percentage of total leukocytes Automated blood eosinophil count as percentage of total leukocytes 2.1 0.0 - 6.0 12/26/2017 [facility] Automated blood hematocrit (volume fraction) Automated blood hematocrit (volume fraction) 40.2 38.2 - 49.6 12/26/2017 [facility] Automated blood lymphocyte count as percentage ot total leukocytes Automated blood lymphocyte count as percentage ot total leukocytes 28.2 18.0 - 39.1 12/26/2017 [facility] Automated blood monocyte count as percentage of total leukocytes Automated blood monocyte count as percentage of total leukocytes 6.4 4.4 - 11.3 12/26/2017 [facility] Automated blood neutrophil count Automated blood neutrophil count 5.0 2.1 - 6.9 12/26/2017 [facility] Automated blood platelet count (count/volume) Automated blood platelet count (count/volume) 142 140 - 360 12/26/2017 [facility] Automated blood segmented neutrophil count as percentage of total leukocytes Automated blood segmented neutrophil count as percentage of total leukocytes 62.5 38.7 - 80.0 12/26/2017 [facility] Automated erythrocyte mean corpuscular hemoglobin (mass per erythrocyte) Automated erythrocyte mean corpuscular hemoglobin (mass per erythrocyte) 32.1 28 - 32 12/26/2017 [facility] Automated erythrocyte mean corpuscular hemoglobin concentration measurement (mass/volume) Automated erythrocyte mean corpuscular hemoglobin concentration measurement (mass/volume) 34.1 31 - 35 12/26/2017 [facility] Automated erythrocyte mean corpuscular volume Automated erythrocyte mean corpuscular volume 94.1 81 - 99 12/26/2017 [facility] Blood erythrocytes automated count (number/volume) Blood erythrocytes automated count (number/volume) 4.27 4.3 - 5.7 12/26/2017 [facility] Blood hemoglobin measurement (moles/volume) Blood hemoglobin measurement (moles/volume) 13.7 14.0 - 18.0 12/26/2017 [facility] Blood leukocytes automated count (number/volume) Blood leukocytes automated count (number/volume) 7.98 4.8 - 10.8 12/26/2017 [facility] Blood lymphocytes count (number/volume) Blood lymphocytes count (number/volume) 2.3 1.0 - 3.2 12/26/2017 [facility] Blood monocytes automated count (number/volume) Blood monocytes automated count (number/volume) 0.5 0.2 - 0.8 12/26/2017 [facility] Estimated glomerular filtration rate (GFR) determination Estimated glomerular filtration rate (GFR) determination 52 60 12/26/2017 [facility] Glucose measurement Glucose measurement 99 74 - 118 12/26/2017 [facility] INR in Platelet poor plasma by Coagulation assay INR in Platelet poor plasma by Coagulation assay 1.27 12/26/2017 [facility] Plasma globulin measurement (mass/volume) Plasma globulin measurement (mass/volume) 3.1 2.3 - 3.5 12/26/2017 [facility] Prothrombin time (PT) in platelet poor plasma by coagulation assay Prothrombin time (PT) in platelet poor plasma by coagulation assay 14.9 11.9 - 14.5 12/26/2017 [facility] Serum or plasma alanine aminotransferase measurement (enzymatic activity/volume) Serum or plasma alanine aminotransferase measurement (enzymatic activity/volume) 24 0 - 55 12/26/2017 [facility] Serum or plasma albumin measurement (mass/volume) Serum or plasma albumin measurement (mass/volume) 4.3 3.5 - 5.0 12/26/2017 [facility] Serum or plasma albumin/globulin mass ratio Serum or plasma albumin/globulin mass ratio 1.4 0.8 - 2.0 12/26/2017 [facility] Serum or plasma alkaline phosphatase measurement (enzymatic activity/volume) Serum or plasma alkaline phosphatase measurement (enzymatic activity/volume) 89 40 - 150 12/26/2017 [facility] Serum or plasma anion gap Serum or plasma anion gap 14.3 8 - 16 12/26/2017 [facility] Serum or plasma calcium measurement (mass/volume) Serum or plasma calcium measurement (mass/volume) 9.9 8.4 - 10.2 12/26/2017 [facility] Serum or plasma carbon dioxide, total measurement (moles/volume) Serum or plasma carbon dioxide, total measurement (moles/volume) 27 22 - 29 12/26/2017 [facility] Serum or plasma chloride measurement (moles/volume) Serum or plasma chloride measurement (moles/volume) 106 98 - 107 12/26/2017 [facility] Serum or plasma creatinine measurement (mass/volume) Serum or plasma creatinine measurement (mass/volume) 1.30 0.72 - 1.25 12/26/2017 [facility] Serum or plasma potassium measurement (moles/volume) Serum or plasma potassium measurement (moles/volume) 4.3 3.5 - 5.1 12/26/2017 [facility] Serum or plasma protein measurement (mass/volume) Serum or plasma protein measurement (mass/volume) 7.4 6.5 - 8.1 12/26/2017 [facility] Serum or plasma sodium measurement (moles/volume) Serum or plasma sodium measurement (moles/volume) 143 136 - 145 12/26/2017 [facility] Serum or plasma total bilirubin measurement (mass/volume) Serum or plasma total bilirubin measurement (mass/volume) 2.1 0.2 - 1.2 12/26/2017 [facility] Serum or plasma urea nitrogen measurement (mass/volume) Serum or plasma urea nitrogen measurement (mass/volume) 25 7 - 26 12/26/2017 [facility] Serum or plasma urea nitrogen/creatinine mass ratio Serum or plasma urea nitrogen/creatinine mass ratio 19 6 - 25 12/26/2017 [facility] Red Cell Distribution Width 14.3 11.7 - 14.4 12/26/2017 [facility] IM GRANULOCYTES % 0.4 0.0 - 1.0 12/26/2017 [facility] Absolute Immature Granulocyte (auto 0.03 0 - 0.1 12/26/2017 [facility] Aspartate Amino Transf (AST/SGOT) 25 5 - 34 12/26/2017 [facility] Pathology Reports No Data Provided for This Section Diagnostic Reports No Data Provided for This Section Consultation Notes No Data Provided for This Section Discharge Summaries No Data Provided for This Section History and Physicals No Data Provided for This Section Vital Signs No Data Provided for This Section Encounters Location Location Details Encounter Type Encounter Number Reason For Visit Attending Provider ADM Date DC Date Status Source Departed Emergency Room [id number] SAMUEL CHAVEZ MD 12/26/2017 12/26/2017 [facility] Procedures Procedure Code Date Perfomer Comments Source Computed tomography of brain without radiopaque contrast [id number] 12/26/2017 [facility] Computed tomography of cervical spine without contrast [id number] 12/26/2017 [facility] Assessment and Plan No Data Provided for This Section Plan of Care Plan of Care Date Source Discharge Date 12/26/17 4:38pm Disposition HOME, SELF-CARE Condition at Discharge Stable Instructions/Education Provided Fractures - Elbow Fractures - Humerus RICE Therapy Forms Provided Work/School Excuse Prescriptions See Medication Section Referrals ERIC MONTANEZ MD (NS) Order Date: Call for an appointment Address: [address] [place] [id number] Note: Call for appointment to remove the two sutures from the right hand near pinky finger. Keep wounds to hand clean, apply thin layer of antibiotic ointment. Apply band aid. MARI MUSA MD Order Date: Call for an appointment Address: [address] [place] [address] [address] [place], [place] [id number] Note: Use shoulder Immobilizer/sling as discussed. Apply Ice packs to areas to help with pain and swelling. Additional Instructions/Education Keep your injured extremity elevated above your heart, use ice packs for 15 to 20 minutes every 1-2 hours. This will help decrease pain and swelling. Take Motrin 400mg to 600mg every 4-6 hours as needed for pain. If prescribed pain medication on discharge, take the pain medication as prescribed and adhere to the warnings given for pain medication such as no swimming, driving operating heavy machinery, drinking or mixing with other medications that can interact with the narcotic. Follow up with the Orthopedic referral physician listed, call next day to schedule your follow-up appointment. Return to the Emergency Department for any shortness of breath, increased pain injured extremity, discoloration of extremity, decreased circulation of extremity, or any new concerns. 12/26/2017 [facility] Social History Social History Date Source Social History Problem Response Recorded Date/Time Onset Date Status Hx Psychiatric Problems No 10/19/2014 7:20pm Not Applicable Not Applicable Hx Eating Disorder No 10/19/2014 7:20pm Not Applicable Not Applicable Hx Substance Use Disorder No 10/19/2014 7:20pm Not Applicable Not Applicable Hx Depression No 10/19/2014 7:20pm Not Applicable Not Applicable Hx Alcohol Use No 10/19/2014 7:20pm Not Applicable Not Applicable Hx Substance Use Treatment No 10/19/2014 7:20pm Not Applicable Not Applicable Hx Physical Abuse No 10/19/2014 7:20pm Not Applicable Not Applicable Smoking Status Start Date Stop Date Unknown if ever smoked 12/26/2017 [facility] Family History No Data Provided for This Section Advance Directives Order Name Results Value Date Source Advance Directives Advance Directives Directive Response Recorded Date/Time Does the patient have an advance directive? Yes 12/26/17 12:56pm If yes, is advance directive on file with [facility]? No 10/19/14 7:20pm If not on file with [facility] will patient provide a copy? Yes 12/26/17 12:56pm Do you have a Directive to Physician? No 12/26/17 12:18pm Do you have a Medical Power of Night Custodian? No 12/26/17 12:18pm Do you have an out of hospital Do Not Resuscitate Order? No 12/26/17 12:18pm Do you have any special needs we should be aware of? No 12/26/17 12:18pm Do you have a support person here with you today? Yes 12/26/17 12:18pm Did patient receive Notice of Privacy Practices? Yes 12/26/17 12:18pm Did patient receive patient rights and responsibilities? Yes 12/26/17 12:18pm 12/26/[address] [facility] Functional Status No Data Provided for This Section
--- OUTSIDE RECORDS SUMMARY | 2019-02-01 11:07 | XMS REPORT ---
Author Author [facility] Address Unknown Phone Unavailable Care Team Providers Care Help Desk Assistant Name Role Phone GOJose TORRES SAMUEL Unavailable Unavailable Problems This patient has no known problems. Allergies, Adverse Reactions, Alerts This patient has no known allergies or adverse reactions. Medications This patient has no known medications. Results Test Description Test Time Test Comments Text Results Atomic Results Result Comments CT CERVICAL SPINE WO [address] [address] Patient Name: SOFIYA TORRES MR #: [id number] : 1930 Age/Sex: 87/M Req #: [id number] Adm Physician: Ordered by: CHARLES HEAD ACCOUNT COLLECTOR Report #: [id number] Location: ER Room/Bed: Procedure: [id number] CT/CT CERVICAL SPINE WO Exam Date: 12/26/17 Exam Time: 1300 REPORT STATUS: Signed Exams: Head and cervical spine CTs without IV contrast History: Trauma, fall, anticoagulated, rule out bleed. Comparison studies: Head CT 09/12/2015. Technique: Axial images were obtained from the brain and cervical spine. Coronal and sagittal images reconstructed from the axial data. Intravenous contrast: None Findings: Head CT: Scalp: No abnormalities. Bones: No fractures, blastic or lytic lesions. Extra-axial spaces: No masses. No fluid collections. Brain sulci: Mildly prominent. Ventricles: Mild compensatory dilatation. No hydrocephalus. Parenchyma: No mass, acute hemorrhage or acute cortical vascular insults. Subtle hypodensities hypodensities in the supratentorial white matter are nonspecific but most compatible with chronic small vessel ischemic changes. Sellar/suprasellar region: No abnormalities. Craniocervical junction: The foramen magnum is patent. No Chiari one malformation. Cervical spine CT: Fractures: None. Soft tissues: No gross abnormalities. Atlantoaxial articulation: Intact. Alignment: Straightened upper cervical curvature with mild cervical kyphosis centered at C5-C6. No acute subluxations. Cervicomedullary junction: No abnormalities. The foramen magnum is patent. Vertebrae: No infection or neoplasm. Degenerative changes: Moderate degenerative changes at the atlantoaxial articulation. Moderately degenerated C5-C6 disc and mildly degenerated C6-C7 discs with disc osteophyte complexes which result in moderate canal stenosis at C5-C6 and mild canal stenosis at C6-C7. Varying degrees of multilevel moderate to severe facet arthrosis. Multilevel uncovertebral facet arthrosis result in multilevel foraminal stenosis (mild left at C2-C3, moderate left and mild right at C3-C4 severe bilaterally at C5- C6 and severe left and moderate right at C6-C7). Included lung apices: Mild nonspecific scarring at the lung apices with right azygos fissure. Focal extraluminal gas at the right tracheoesophageal groove at the thoracic inlet may reflect incidental tracheal diverticulum. Incidental findings: Atherosclerotic calcifications in the cervical carotid bulbs and in the carotid siphons. Mild chronic inflammatory changes in the left posterior mastoids. Partially imaged bilateral implanted intracardiac lead wires. IMPRESSION: Head CT: 1. No acute abnormalities. 2. No changes from the previous head CT of 09/12/2015. 3. Mild generalized volume loss with mild chronic microvascular ischemic changes. Cervical spine CT: 1. No cervical spine fracture or acute subluxation. 2. Multilevel degenerative changes as described. 3. Cannot evaluate ligament, spinal cord and or vascular abnormalities on the basis of this examination. Signed by: Dr. Fabiola Schmid M.D. on 12/26/2017 1:42 PM Dictated By: FABIOLA SCHMID MD 1342 Transcribed By: JALEN on 12/26/17 1342 COPY TO: CHARLES HEAD NP CT BRAIN WO [facility] [address] [address] Patient Name: SOFIYA TORRES MR #: [id number] : 1930 Age/Sex: 87/M Req #: [id number] Adm Physician: Ordered by: CHARLES HEAD ACCOUNT COLLECTOR Report #: [id number] Location: ER Room/Bed: Procedure: [id number] CT/CT BRAIN WO Exam Date: 12/26/17 Exam Time: 1300 REPORT STATUS: Signed Exams: Head and cervical spine CTs without IV contrast History: Trauma, fall, anticoagulated, rule out bleed. Comparison studies: Head CT 09/12/2015. Technique: Axial images were obtained from the brain and cervical spine. Coronal and sagittal images reconstructed from the axial data. Intravenous contrast: None Findings: Head CT: Scalp: No abnormalities. Bones: No fractures, blastic or lytic lesions. Extra-axial spaces: No masses. No fluid collections. Brain sulci: Mildly prominent. Ventricles: Mild compensatory dilatation. No hydrocephalus. Parenchyma: No mass, acute hemorrhage or acute cortical vascular insults. Subtle hypodensities hypodensities in the supratentorial white matter are nonspecific but most compatible with chronic small vessel ischemic changes. Sellar/suprasellar region: No abnormalities. Craniocervical junction: The foramen magnum is patent. No Chiari one malformation. Cervical spine CT: Fractures: None. Soft tissues: No gross abnormalities. Atlantoaxial articulation: Intact. Alignment: Straightened upper cervical curvature with mild cervical kyphosis centered at C5-C6. No acute subluxations. Cervicomedullary junction: No abnormalities. The foramen magnum is patent. Vertebrae: No infection or neoplasm. Degenerative changes: Moderate degenerative changes at the atlantoaxial articulation. Moderately degenerated C5-C6 disc and mildly degenerated C6-C7 discs with disc osteophyte complexes which result in moderate canal stenosis at C5-C6 and mild canal stenosis at C6-C7. Varying degrees of multilevel moderate to severe facet arthrosis. Multilevel uncovertebral facet arthrosis result in multilevel foraminal stenosis (mild left at C2-C3, moderate left and mild right at C3-C4 severe bilaterally at C5- C6 and severe left and moderate right at C6-C7). Included lung apices: Mild nonspecific scarring at the lung apices with right azygos fissure. Focal extraluminal gas at the right tracheoesophageal groove at the thoracic inlet may reflect incidental tracheal diverticulum. Incidental findings: Atherosclerotic calcifications in the cervical carotid bulbs and in the carotid siphons. Mild chronic inflammatory changes in the left posterior mastoids. Partially imaged bilateral implanted intracardiac lead wires. IMPRESSION: Head CT: 1. No acute abnormalities. 2. No changes from the previous head CT of 09/12/2015. 3. Mild generalized volume loss with mild chronic microvascular ischemic changes. Cervical spine CT: 1. No cervical spine fracture or acute subluxation. 2. Multilevel degenerative changes as described. 3. Cannot evaluate ligament, spinal cord and or vascular abnormalities on the basis of this examination. Signed by: Dr. Fabiola Schmid M.D. on 12/26/2017 1:42 PM Dictated By: FABIOLA SCHMID MD 1342 Transcribed By: JALEN on 12/26/17 1342 COPY TO: CHARLES HEAD ACCOUNT COLLECTOR ELBOW RIGHT [place] [address] Patient Name: SOFIYA TORRES MR #: [id number] : 1930 Age/Sex: 87/M Req #: [id number] Adm Physician: Ordered by: CHARLES HEAD NP Report #: [id number] Location: ER Room/Bed: Procedure: DX/ELBOW RIGHT COMPLETE Exam Date: 12/26/17 Exam Time: 1240 REPORT STATUS: Signed PROCEDURE: ELBOW RIGHT COMPLETE TECHNIQUE: AP, lateral and oblique views right elbow in INDICATION: Right elbow pain status post fall COMPARISON: None. FINDINGS: Suspected nondisplaced radial head fracture. Small joint effusion. Regional skeleton otherwise intact. CONCLUSION: Questionable nondisplaced radial head fracture with associated small joint effusion.. Dictated by: Lyndsay Billingsley M.D. on 12/26/2017 at 14:40 Electronically approved by: Lyndsay Billingsley M.D. on 12/26/2017 at 14:40 Dictated By: LYNDSAY BILLINGSLEY MD 1440 Transcribed By: AMBREEN on 12/26/17 1440 COPY TO: CHARLES HEAD NP HUMERUS RIGHT 2+VIEWS [place] [address] Patient Name: SOFIYA TORRES MR #: [id number] : 1930 Age/Sex: 87/M Req #: [id number] Adm Physician: Ordered by: CHARLES HEAD NP Report #: [id number] Location: ER Room/Bed: Procedure: DX/HUMERUS RIGHT 2+VIEWS Exam Date: 12/26/17 Exam Time: 1240 REPORT STATUS: Signed PROCEDURE: HUMERUS RIGHT 2+VIEWS TECHNIQUE: AP and lateral views right humerus totaling 3 radiographs INDICATION: Shoulder pain status post fall COMPARISON: None. FINDINGS: The right humerus and regional skeleton are intact and in anatomic alignment. Joint spaces are maintained. Mild degenerative change at the glenohumeral joint. Leads from an AICD partially imaged. CONCLUSION: No evidence of acute traumatic injury to the right humerus. Dictated by: Lyndsay Billingsley M.D. on 12/26/2017 at 14:41 Electronically approved by: Lyndsay Billingsley M.D. on 12/26/2017 at 14:41 Dictated By: LYNDSAY BILLINGSLEY MD 1441 Transcribed By: AMBREEN on 12/26/17 1441 COPY TO: CHARLES HEAD NP
--- OUTSIDE RECORDS SUMMARY | 2019-02-01 11:07 | XMS REPORT | Summary of Care ---
Author Author TARIK Self, ERIC Moya Unknown Address Unknown Phone Unavailable Care Team Providers Care Brake Assembler Name Role Phone KATHY Epps, CHARLES Unavailable Unavailable TARIK Self, ERIC Unavailable Unavailable SOLEDAD Self, RILEY Unavailable Unavailable ERIC MONTANEZ MD Unavailable Unavailable Soledad HUBBARD, Riley Unavailable Unavailable RUFINO HUBBARD [place], JACOBO Merchant Unavailable Unavailable Unavailable Unavailable Functional Status Name Dates Details Functional status health issues are not documented Status: Name Dates Details Cognitive status health issues are not documented Status: Problems Name Dates Details Abnormal laboratory test result (796.4, R89.9) Status: Active Depression screen (V79.0, Z13.31) Status: Active Encounter for mini-mental status examination Status: Active Eye irritation (379.99, H57.89) Status: Active Flu vaccine need (V04.81, Z23) Status: Active Left anterior knee pain (719.46, M25.562) Status: Active Need for pneumococcal vaccination (V03.82, Z23) Status: Active On potassium wasting diuretic therapy (V58.69, Z79.899) Status: Active Preop examination (V72.84, Z01.818) Status: Active Urgency of urination (788.63, R39.15) Status: Active Closed fracture of left elbow, initial encounter (812.40, S42.402A) Status: Active Dizziness (780.4, R42) Status: Active Constipation (564.00, K59.00) Status: Active Thrombocytopenia (287.5, D69.6) Status: Active Weight loss (783.21, R63.4) Status: Active Syncope (780.2, R55) Status: Active Shortness of breath (786.05, R06.02) Status: Active Severe tricuspid regurgitation (397.0, I07.1) Status: Active 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, 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) Status: Active 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) Status: Active 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, 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) Status: Active Neck sprain and strain (847.0, S13.9XXA) Status: Active Frequent urination (788.41, R35.0) Status: Active Hearing impaired (389.9, H91.90) Status: Active Insomnia (780.52, G47.00) Status: Active At high risk for falls (V15.88, Z91.81) Status: Active Anorexia (783.0, R63.0) Status: Active Meniere's disease (386.00, H81.09) Status: Active Nocturia more than twice per night (788.43, R35.1) Status: Active Cervicalgia (723.1, M54.2) Status: Active Corneal abrasion, unspecified laterality, initial encounter (918.1, S05.00XA) Status: Active Fatigue (780.79, R53.83) Status: Active 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, 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) Status: Active Depression (311, F32.9) Status: Active Dyspnea (786.09, R06.00) Status: Active Ventricular tachycardia (427.1, I47.2) Status: Active Osteoarthritis of knee, unspecified (715.36, M17.9) Status: Active 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, 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) Status: Active Benign prostatic hyperplasia (600.00, N40.0) Status: Active Mild cognitive impairment (331.83, G31.84) Status: Active 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 last refill , needs office visit * Quantity: 90 Refills: 1 CHARLES CHAVEZ N.P. * Start : 16-Jul-2014 Active Amiodarone HCl - 200 MG Oral Tablet TAKE 1 TABLET BY MOUTH EVERY DAY * Quantity: 90 Refills: 3 SOLEDAD Self RILEY * Start : 20-May-2016 Active Meclizine HCl - 25 MG Oral Tablet TAKE 1 TABLET EVERY 6 HOURS NEEDED. * Quantity: 40 Refills: 0 ERIC MONTANEZ M.D. * Start : 05-Feb-2015 Active Carvedilol 6.25 MG Oral Tablet TAKE 1 TABLET TWICE DAILY With meals * Quantity: 180 Refills: 1 CHARLES CHAVEZ N.P. * Start : 12-Dec-2014 Active Finasteride 5 MG Oral Tablet TAKE 1 TABLET DAILY * Quantity: 90 Refills: 1 CHARLES CHAVEZ N.P. * Start : 11-Jun-2015 Active Potassium Chloride Kasie ER 10 MEQ Oral Tablet Extended Release TAKE 1 TABLET BY MOUTH ONCE DAILY.needs office visit * Quantity: 90 Refills: 1 CHARLES CHAVEZ N.P. * Start : 29-Sep-2015 Active Aspirin 325 MG Oral Tablet TAKE 1 TABLET DAILY * Refills: 0 Active Centrum Silver TABS TAKE 1 TABLET DAILY. * Refills: 0 Active Donepezil HCl - 10 MG Oral Tablet TAKE ONE TABLET BY MOUTH ONCE DAILY * Quantity: 90 Refills: 1 CHARLES CHAVEZ N.P. * Start : 01-Feb-2017 Active Meclizine HCl - 25 MG Oral Tablet TAKE 1 TABLET 3 TIMES DAILY NEEDED. * Quantity: 30 Refills: 0 ERIC MONTANEZ M.D. * Start : 19-Jan-2019 End : 29-Jan-2019 Active Allergies and Adverse Reactions Name Dates Details No Known Drug Allergies (Allergy) Status: Active Insect Venom (Allergy) Status: Active Past Medical History Name Dates Details H/O endoscopy (V45.89, Z98.890) Status: Resolved History of Abnormal echocardiogram (793.2, R93.1) Status: Resolved History of Anticoagulant long-term use (V58.61, Z79.01) Status: Resolved History of arthritis (V13.4, Z87.39) Status: Resolved History of ascites (V13.89, Z87.898) Status: Resolved History of Bilateral edema of lower extremity (782.3, R60.0) Status: Resolved History of congestive heart failure (V12.59, Z86.79) Status: Resolved History of dizziness (V13.89, Z87.898) Status: Resolved 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, 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 History of Scalp laceration (873.0, S01.01XA) Status: Resolved Procedures Procedure Dates Details History [...] polysaccharide vaccine, 23 valent on: Jul-2009 Zostavax 04474 UNT/0.65ML Subcutaneous Solution Reconstituted on: Jul-2011 Tdap (Boostrix) on: Jul-2013 Influenza on: 25-Mar-2014 Prevnar 13 Intramuscular Suspension Lot #: [id number] on: 15-Jan-2015 Fluzone INJ Lot #: [id number] on: 22-Apr-2015 Fluzone High-Dose SUSP Lot #: [id number] on: 13-May-2016 Fluzone High-Dose 0.5 ML Intramuscular Suspension Prefilled Syringe Lot #: [id number] on: 02-May-2017 Shingrix 50 MCG Intramuscular Suspension Reconstituted on: 22-Feb-2018 Influenza, seasonal, injectable on: 08-Apr-2018 Family History Name Dates Details Family history of lung cancer (V16.1, Z80.1) Status: Active Name Dates Details Family history of NE (myocardial infarction) (410.90, I21.9) Status: Active Name Dates Details Family history of cardiac disorder (V17.49, Z82.49) Status: Active Family history of NE (myocardial infarction) (410.90, I21.9) Status: Active Name [...] Planned Goals not documented Planned Encounters Appointment; ERIC MONTANEZ M.D. On: 22-Feb-2019 10:00 Appointment; RILEY KHAN M.D. On: 02-Jul-2019 11:00 Interventions Provided Medication Changes* Meclizine HCl - 25 MG Oral Tablet - Start Instructions Name Dates Details Instructions not documented Encounters Appointment; ERIC MONTANEZ M.D. Encounter Diagnosis: Problem not documented On: 01-Feb-2017 9:45 Appointment; ERIC MONTANEZ M.D. Encounter Diagnosis: Problem not documented On: 02-May-2017 9:15 Appointment; LYDIA-MS, ECHO Encounter Diagnosis: Problem not documented On: 08-Jun-2017 15:00 Appointment; CHIKI RAYMOND M.D. Encounter Diagnosis: Problem not documented On: 01-Jul-2017 9:45 Appointment; RILEY KHAN M.D. Encounter Diagnosis: Problem not documented On: 04-Jul-2017 9:40 Appointment; PRAVEEN GARCIA M.D. Encounter Diagnosis: Problem not documented On: 02-Aug-2017 11:45 Appointment; CHIKI RAYMOND M.D. Encounter Diagnosis: Problem not documented On: 30-Dec-2017 9:30 Appointment; RILEY KHAN M.D. Encounter Diagnosis: Problem not documented On: 02-Jan-2018 11:00 Appointment; ERIC MONTANEZ M.D. Encounter Diagnosis: Problem not documented On: 02-Jan-2018 13:30 Appointment; CHARLES CHAVEZ NP Encounter Diagnosis: Problem not documented On: 19-May-2018 12:00 Appointment; LYDIA-MS, ECHO Encounter Diagnosis: Problem not documented On: 29-Jun-2018 10:00 Appointment; RILEY KHAN M.D. Encounter Diagnosis: Problem not documented On: 03-Jul-2018 11:20 Appointment; CHIKI RAYMOND M.D. Encounter Diagnosis: Problem not documented On: 07-Jul-2018 9:45 Appointment; CHARLES CHAVEZ NP Encounter Diagnosis: Problem not documented On: 31-Aug-2018 8:15 Appointment; RILEY KHAN M.D. Encounter Diagnosis: Problem not documented On: 30-Oct-2018 11:20 Appointment; CHIKI RAYMOND M.D. Encounter Diagnosis: Problem not documented On: 12-Jan-2019 9:15
== END 2019-02-01 11:35 | disposition home or self-care (01) ==
LOC: ER 11:00
DX: L72.3 Sebaceous cyst (principal); I10 Essential (primary) hypertension; I25.10 Atherosclerotic heart disease of native coronary artery without angina pectoris; I48.91 Unspecified atrial fibrillation
CPT/HCPCS: 99282

== ENCOUNTER 2021-07-02 08:42 | Inpatient (IN) | payer MEDICARE, OTHER ==
[~2021-07-02] VITALS: Ht 182.9 cm; Wt 77.1 kg
[~2021-07-02 08:42] MED LIST changes: -AMIODARONE HCL200 MG; +AMIODARONE HCL200 MG PO; -LOSARTAN POTAS100 MG; +LOSARTAN POTAS100 MG PO
[2021-07-02 09:05] LABS: BASOPHILS % 0.4 % (0.0-1.0); EOSINOPHILS # (AUTO) 0.1 (0.0-0.4); EOSINOPHILS % 1.4 % (0.0-6.0); HEMATOCRIT 35.2 % (38.2-49.6); HEMOGLOBIN 11.1 g/dL (14.0-18.0); LYMPHOCYTES # (AUTO) 1.3 (1.0-3.2); LYMPHOCYTES % 18.1 % (18.0-39.1); MEAN CORPUSCULAR HEMOGLOBIN 30.5 pg (28-32); MEAN CORPUSCULAR HGB CONC 31.5 g/dL (31-35); MEAN CORPUSCULAR VOLUME 96.7 fL (81-99); MONOCYTES # (AUTO) 0.5 (0.2-0.8); MONOCYTES % 7.1 % (4.4-11.3); NEUTROPHILS # (AUTO) 5.1 (2.1-6.9); NEUTROPHILS % 72.7 % (38.7-80.0); PLATELET COUNT 109 x10e3/uL (140-360); RED BLOOD COUNT 3.64 x10e6/uL (4.3-5.7); RED CELL DISTRIBUTION WIDTH 13.5 % (11.7-14.4)
[2021-07-02 09:29] LABS: ALBUMIN 2.7 g/dL (3.5-5.0); ALBUMIN/GLOBULIN RATIO 1.4 (0.8-2.0); ANION GAP 9.5 mmol/L (8-16); CREATININE, SERUM 0.91 mg/dL (0.72-1.25); POTASSIUM 3.5 mmol/L (3.5-5.1)
[2021-07-02 09:31] LABS: CALCIUM 6.6 mg/dL (8.4-10.2)
[2021-07-02 09:32] LABS: INR 1.05; PARTIAL THROMBOPLASTIN TIME 29.8 seconds (23.8-35.5); PROTHROMBIN TIME 14.6 seconds (11.9-14.5)
[2021-07-02 09:39] LABS: CREATINE KINASE MB 1.4 ng/mL (0-5.0)
[2021-07-02] MEDS ORDERED: CALCIUM GLUCONATE 10% INJ 4.65 MEQ in SODIUM CHLORIDE 0.9% 50ML 50 ML IV ONE (09:45)
[2021-07-02 12:15] VITALS: BP 149/74
[2021-07-02 12:21] VITALS: BP 149/74
[2021-07-02 12:30] VITALS: BP 149/74
[2021-07-02 16:14] VITALS: BP 142/84
[2021-07-02 17:02] LABS: CREATINE KINASE MB 1.2 ng/mL (0-5.0)
[2021-07-02] MEDS ORDERED: NAMENDA10 MG PO (17:08)
[2021-07-02] MEDS ORDERED: ASPIRIN81 MG PO (17:08)
[2021-07-02 20:00] VITALS: BP 132/60
[2021-07-03] VITALS (9 sets, daily range): BP systolic 112–142; BP diastolic 53–65
[2021-07-03 06:10] LABS: BASOPHILS % 0.4 % (0.0-1.0); EOSINOPHILS % 0.4 % (0.0-6.0); HEMATOCRIT 36.3 % (38.2-49.6); HEMOGLOBIN 11.6 g/dL (14.0-18.0); LYMPHOCYTES # (AUTO) 1.7 (1.0-3.2); MEAN CORPUSCULAR HEMOGLOBIN 30.8 pg (28-32); MEAN CORPUSCULAR VOLUME 96.3 fL (81-99); MONOCYTES % 12.4 % (4.4-11.3); NEUTROPHILS # (AUTO) 5.1 (2.1-6.9); NEUTROPHILS % 64.4 % (38.7-80.0); PLATELET COUNT 107 x10e3/uL (140-360); RED BLOOD COUNT 3.77 x10e6/uL (4.3-5.7); RED CELL DISTRIBUTION WIDTH 13.7 % (11.7-14.4)
[2021-07-03 07:07] LABS: ANION GAP 10.9 mmol/L (8-16); CALCIUM 9.2 mg/dL (8.4-10.2); CREATININE, SERUM 1.15 mg/dL (0.72-1.25); POTASSIUM 3.9 mmol/L (3.5-5.1)
[2021-07-03 07:41] LABS: CREATINE KINASE MB 0.6 ng/mL (0-5.0)
[2021-07-03 07:46] LABS: CHOL/HDL RATIO 2.8 (3.9-4.7)
[2021-07-03] MEDS ORDERED: LEVALBUTEROL HCL SOLN NEBU 1.25 MG/3 ML NEB INH PRN (09:30)
[2021-07-03] MEDS ORDERED: MECLIZINE HCL 12.5 MG TAB PO PRN (09:30)
[2021-07-03] MEDS ORDERED: BENZONATATE 100 MG CAP PO PRN (09:45)
[2021-07-03] MEDS ORDERED: ASPIRIN 81 MG CHEW TAB PO SCH (10:00)
[2021-07-03] MEDS ORDERED: POTASSIUM CHLORIDE 10MEQ EA PO ONE (10:30)
[2021-07-03] MEDS: FUROSEMIDE INJ 10 MG/ML 4 ML VIAL IV SCH (10:30)
[2021-07-03] MEDS: CARVEDILOL 3.125 MG TAB PO SCH ×2 (10:30→16:02)
[2021-07-03] MEDS: AMIODARONE HCL 200 MG TAB PO SCH (10:30)
[2021-07-03] MEDS: CEFTRIAXONE 1 GM in SODIUM CHLORIDE 0.9% 50ML 50 ML IV SCH ×2 (10:30→20:45)
[2021-07-03] MEDS: IPRATROPIUM BROMIDE 0.02% 2.5 ML NEB NEB SCH ×3 (10:50→19:55)
[2021-07-03] MEDS: LEVALBUTEROL HCL SOLN NEBU 1.25 MG/3 ML NEB INH SCH ×3 (10:50→19:55)
[2021-07-03 13:33] LABS: CREATINE KINASE MB 0.8 ng/mL (0-5.0)
[2021-07-03] MEDS: FAMOTIDINE 20 MG TAB PO SCH (16:01)
[2021-07-03] MEDS: ENOXAPARIN SOD INJ 40 MG/0.4 ML SYR SC SCH (16:02)
[2021-07-03] MEDS: MEMANTINE 10 MG TAB PO SCH (16:02)
[2021-07-03] MEDS ORDERED: LOSARTAN POTASSIUM 100 MG TAB PO SCH (21:00)
[2021-07-03] MEDS ORDERED: SODIUM CHLORIDE 0.9% 250ML 250 ML ONE (21:20)
[2021-07-04] VITALS (8 sets, daily range): BP systolic 121–138; BP diastolic 57–68
[2021-07-04] MEDS: IPRATROPIUM BROMIDE 0.02% 2.5 ML NEB NEB SCH ×4 (03:05→18:26)
[2021-07-04] MEDS: LEVALBUTEROL HCL SOLN NEBU 1.25 MG/3 ML NEB INH SCH ×4 (03:05→18:26)
[2021-07-04] MEDS ORDERED: HYDRALAZINE HCL 20 MG/ML VIAL IV PRN (06:15)
[2021-07-04 06:37] LABS: BASOPHILS % 0.4 % (0.0-1.0); EOSINOPHILS # (AUTO) 0.1 (0.0-0.4); HEMATOCRIT 36.8 % (38.2-49.6); HEMOGLOBIN 11.9 g/dL (14.0-18.0); LYMPHOCYTES # (AUTO) 1.4 (1.0-3.2); LYMPHOCYTES % 18.8 % (18.0-39.1); MEAN CORPUSCULAR HEMOGLOBIN 30.6 pg (28-32); MEAN CORPUSCULAR HGB CONC 32.3 g/dL (31-35); MEAN CORPUSCULAR VOLUME 94.6 fL (81-99); MONOCYTES # (AUTO) 0.8 (0.2-0.8); MONOCYTES % 11.5 % (4.4-11.3); PLATELET COUNT 103 x10e3/uL (140-360); RED BLOOD COUNT 3.89 x10e6/uL (4.3-5.7); RED CELL DISTRIBUTION WIDTH 13.6 % (11.7-14.4)
[2021-07-04] MEDS: CARVEDILOL 3.125 MG TAB PO SCH ×2 (06:58→17:18)
[2021-07-04 07:03] LABS: ANION GAP 12.1 mmol/L (8-16); CREATININE, SERUM 1.03 mg/dL (0.72-1.25); POTASSIUM 4.1 mmol/L (3.5-5.1)
[2021-07-04] MEDS ORDERED: NON-FORMULARY MEDICATION (Potassium Chloride (Klor-Con 10) 1 TAB) PO SCH (09:00)
[2021-07-04] MEDS: NON-FORMULARY MEDICATION (Fish Oil/Dha/Epa (Fish Oil 1,200 Mg Fish Oil) 1,200 MG) PO SCH (09:00)
[2021-07-04] MEDS ORDERED: POTASSIUM CHLORIDE 10MEQ EA PO SCH (09:00)
[2021-07-04] MEDS ORDERED: ASPIRIN 81 MG CHEW TAB PO SCH (09:00)
[2021-07-04] MEDS: ASPIRIN 81 MG CHEW TAB PO SCH (10:04)
[2021-07-04] MEDS: AMIODARONE HCL 200 MG TAB PO SCH (10:04)
[2021-07-04] MEDS: FAMOTIDINE 20 MG TAB PO SCH ×2 (10:04→17:17)
[2021-07-04] MEDS: SACUBITRIL/VALSARTAN 1 EACH TABLET PO SCH ×2 (10:04→20:23)
[2021-07-04] MEDS: MEMANTINE 10 MG TAB PO SCH ×2 (10:05→17:17)
[2021-07-04] MEDS: FUROSEMIDE INJ 10 MG/ML 4 ML VIAL IV SCH (10:43)
[2021-07-04] MEDS: CEFTRIAXONE 1 GM in SODIUM CHLORIDE 0.9% 50ML 50 ML IV SCH ×2 (10:44→20:23)
[2021-07-04] MEDS: ENOXAPARIN SOD INJ 40 MG/0.4 ML SYR SC SCH (17:17)
[2021-07-04] MEDS: ACETAMINOPHEN 325 MG TAB PO PRN (23:17)
[2021-07-05] VITALS (8 sets, daily range): BP systolic 126–162; BP diastolic 57–74
[2021-07-05] MEDS: LEVALBUTEROL HCL SOLN NEBU 1.25 MG/3 ML NEB INH SCH ×4 (00:55→19:55)
[2021-07-05] MEDS: IPRATROPIUM BROMIDE 0.02% 2.5 ML NEB NEB SCH ×4 (00:55→13:31)
[2021-07-05] MEDS: ACETAMINOPHEN 325 MG TAB PO PRN ×2 (05:24→21:19)
[2021-07-05] MEDS: CARVEDILOL 3.125 MG TAB PO SCH ×2 (05:28→17:08)
[2021-07-05 06:01] LABS: ANION GAP 14.8 mmol/L (8-16); CREATININE, SERUM 1.13 mg/dL (0.72-1.25); POTASSIUM 3.8 mmol/L (3.5-5.1)
[2021-07-05] MEDS ORDERED: CEFTRIAXONE 1 GM VIAL ONE (06:05)
[2021-07-05] MEDS: NON-FORMULARY MEDICATION (Fish Oil/Dha/Epa (Fish Oil 1,200 Mg Fish Oil) 1,200 MG) PO SCH (08:45)
[2021-07-05] MEDS: ASPIRIN 81 MG CHEW TAB PO SCH (08:48)
[2021-07-05] MEDS: AMIODARONE HCL 200 MG TAB PO SCH (08:48)
[2021-07-05] MEDS: FAMOTIDINE 20 MG TAB PO SCH ×2 (08:48→17:07)
[2021-07-05] MEDS: MEMANTINE 10 MG TAB PO SCH ×2 (08:49→17:07)
[2021-07-05] MEDS: SACUBITRIL/VALSARTAN 1 EACH TABLET PO SCH ×2 (08:49→20:52)
[2021-07-05] MEDS: FUROSEMIDE INJ 10 MG/ML 4 ML VIAL IV SCH (08:52)
[2021-07-05] MEDS: CEFTRIAXONE 1 GM in SODIUM CHLORIDE 0.9% 50ML 50 ML IV SCH ×2 (08:52→20:51)
[2021-07-05] MEDS: TRAMADOL/APAP 37.5MG-325MG TAB PO PRN (17:09)
[2021-07-05] MEDS: ENOXAPARIN SOD INJ 40 MG/0.4 ML SYR SC SCH (17:13)
[2021-07-06] VITALS: BP 143/68
[2021-07-06] MEDS: IPRATROPIUM BROMIDE 0.02% 2.5 ML NEB NEB SCH ×2 (00:30→07:56)
[2021-07-06] MEDS: LEVALBUTEROL HCL SOLN NEBU 1.25 MG/3 ML NEB INH SCH ×2 (00:30→07:56)
[2021-07-06 04:00] VITALS: BP 160/76
[2021-07-06] MEDS: TRAMADOL/APAP 37.5MG-325MG TAB PO PRN (04:01)
[2021-07-06 05:52] LABS: BASOPHILS % 0.4 % (0.0-1.0); EOSINOPHILS # (AUTO) 0.2 (0.0-0.4); EOSINOPHILS % 1.9 % (0.0-6.0); HEMATOCRIT 37.4 % (38.2-49.6); HEMOGLOBIN 12.1 g/dL (14.0-18.0); LYMPHOCYTES # (AUTO) 1.4 (1.0-3.2); LYMPHOCYTES % 16.3 % (18.0-39.1); MEAN CORPUSCULAR HEMOGLOBIN 30.6 pg (28-32); MEAN CORPUSCULAR HGB CONC 32.4 g/dL (31-35); MEAN CORPUSCULAR VOLUME 94.7 fL (81-99); MONOCYTES # (AUTO) 0.7 (0.2-0.8); MONOCYTES % 8.8 % (4.4-11.3); NEUTROPHILS % 72.4 % (38.7-80.0); PLATELET COUNT 166 x10e3/uL (140-360); RED BLOOD COUNT 3.95 x10e6/uL (4.3-5.7); RED CELL DISTRIBUTION WIDTH 13.4 % (11.7-14.4)
[2021-07-06] MEDS: CARVEDILOL 3.125 MG TAB PO SCH (06:15)
[2021-07-06 06:30] LABS: ANION GAP 10.7 mmol/L (8-16); CREATININE, SERUM 0.86 mg/dL (0.72-1.25); POTASSIUM 3.7 mmol/L (3.5-5.1)
[2021-07-06 07:46] VITALS: BP 143/71
[2021-07-06] MEDS: FAMOTIDINE 20 MG TAB PO SCH (08:34)
[2021-07-06] MEDS: CEFTRIAXONE 1 GM in SODIUM CHLORIDE 0.9% 50ML 50 ML IV SCH (08:34)
[2021-07-06] MEDS: SACUBITRIL/VALSARTAN 1 EACH TABLET PO SCH (08:35)
[2021-07-06] MEDS: ASPIRIN 81 MG CHEW TAB PO SCH (08:35)
[2021-07-06] MEDS: AMIODARONE HCL 200 MG TAB PO SCH (08:36)
[2021-07-06] MEDS: MEMANTINE 10 MG TAB PO SCH (08:36)
[2021-07-06] MEDS: NON-FORMULARY MEDICATION (Fish Oil/Dha/Epa (Fish Oil 1,200 Mg Fish Oil) 1,200 MG) PO SCH (08:41)
[2021-07-06] MEDS ORDERED: CELECOXIB 100 MG CAP PO SCH (09:00)
[2021-07-06] MEDS ORDERED: FUROSEMIDE 40 MG TAB PO SCH ×2 (09:00)
[2021-07-06] MEDS ORDERED: PANTOPRAZOLE SOD 40 MG TABEC PO SCH (09:30)
[2021-07-06 09:53] VITALS: BP 143/71
[2021-07-06] MEDS ORDERED: MEMANTINE 10 MG TAB PO SCH (17:00)
== END 2021-07-06 11:20 | disposition home health service (06) | DRG 291 ==
LOC: ER 09:12 → ERHOLD 10:28 → IMCU 11:44 → MED/SURG3 18:33
PROVIDERS: ADMIT Internal Medicine; ATTEND Internal Medicine
DX: I11.0 Hypertensive heart disease with heart failure (principal); I50.23 Acute on chronic systolic (congestive) heart failure; J18.9 Pneumonia, unspecified organism; J44.0 Chronic obstructive pulmonary disease with (acute) lower respiratory infection; J44.1 Chronic obstructive pulmonary disease with (acute) exacerbation; I25.10 Atherosclerotic heart disease of native coronary artery without angina pectoris; E83.51 Hypocalcemia; D64.9 Anemia, unspecified; D69.6 Thrombocytopenia, unspecified; K74.60 Unspecified cirrhosis of liver; R07.81 Pleurodynia; I48.0 Paroxysmal atrial fibrillation; Z96.652 Presence of left artificial knee joint; Z95.810 Presence of automatic (implantable) cardiac defibrillator; F03.90 Unspecified dementia, unspecified severity, without behavioral disturbance, psychotic disturbance, mood disturbance, and anxiety; M51.36 Other intervertebral disc degeneration, lumbar region; Z20.822 Contact with and (suspected) exposure to COVID-19
CPT/HCPCS: 36415; 71045; 71250; 72100; 80048; 80053; 80061; 82550; 82553; 83880; 84484; 85025; 85610; 85730; 93005; 93306; 94640; 94799; 97139; 99285; J0456; J0610; J0696; J1650; J1940; J7050; U0002

== ENCOUNTER 2022-04-08 11:17 | Observation (INO) | payer MEDICARE, OTHER ==
[~2022-04-08] VITALS: Ht 182.9 cm; Wt 77.1 kg
[~2022-04-08 11:17] MED LIST changes: +ASPIRIN81 MG PO; -MIRTAZAPINE30 MG; +MIRTAZAPINE30 MG PO; +NAMENDA10 MG PO
[2022-04-08] MEDS ORDERED: Morphine 4mg INJECTION 4 MG/ML INJ IV STA (11:47)
[2022-04-08] MEDS ORDERED: ONDANSETRON HCL INJ 2MG/ML 2ML 2 MG/ML VIAL IV STA ×2 (11:47→15:47)
[2022-04-08 12:02] LABS: BASOPHILS % 0.2 % (0.0-1.0); HEMATOCRIT 37.6 % (38.2-49.6); HEMOGLOBIN 12.2 g/dL (14.0-18.0); LYMPHOCYTES % 12.7 % (18.0-39.1); MEAN CORPUSCULAR HEMOGLOBIN 30.7 pg (28-32); MEAN CORPUSCULAR HGB CONC 32.4 g/dL (31-35); MEAN CORPUSCULAR VOLUME 94.7 fL (81-99); MONOCYTES # (AUTO) 0.3 (0.2-0.8); MONOCYTES % 4.2 % (4.4-11.3); NEUTROPHILS # (AUTO) 6.7 (2.1-6.9); NEUTROPHILS % 82.7 % (38.7-80.0); PLATELET COUNT 162 x10e3/uL (140-360); RED BLOOD COUNT 3.97 x10e6/uL (4.3-5.7); RED CELL DISTRIBUTION WIDTH 14.6 % (11.7-14.4)
[2022-04-08 12:27] LABS: INR 1.06; PROTHROMBIN TIME 14.8 seconds (11.9-14.5)
[2022-04-08 12:28] LABS: PARTIAL THROMBOPLASTIN TIME 29.8 seconds (23.8-35.5)
[2022-04-08 12:38] LABS: ALANINE AMINOTRANSFERASE 18 IU/L (0-55); ALBUMIN/GLOBULIN RATIO 1.1 (0.8-2.0); ALKALINE PHOSPHATASE 96 IU/L (40-150); ANION GAP 17.1 mmol/L (8-16); BLOOD UREA NITROGEN 20 mg/dL (7-26); BUN/CREATININE RATIO 17 (6-25); CALCIUM 9.2 mg/dL (8.4-10.2); CARBON DIOXIDE 23 mmol/L (22-29); CHLORIDE 107 mmol/L (98-107); CREATINE KINASE 110 IU/L (30-200); CREATININE, SERUM 1.16 mg/dL (0.72-1.25); GLUCOSE 157 mg/dL (74-118); POTASSIUM 5.1 mmol/L (3.5-5.1); SODIUM 142 mmol/L (136-145)
[2022-04-08 14:29] LABS: CLARITY,URINE CLEAR (CLEAR); COLOR,URINE YELLOW (YELLOW)
[2022-04-08 14:30] LABS: KETONES,URINE 1+ (NEGATIVE); LEUKOCYTE ESTERASE ,URINE NEGATIVE (NEGATIVE); NITRITE,URINE NEGATIVE (NEGATIVE); PROTEIN,URINE DIPSTICK 1+ (NEGATIVE)
[2022-04-08 14:42] LABS: BACTERIA,URINE FEW /HPF; EPITHELIAL CELLS,URINE FEW /LPF; MUCUS,URINE FEW (RARE)
[2022-04-08] MEDS ORDERED: ONDANSETRON HCL INJ 2MG/ML 2ML 2 MG/ML VIAL ONE (15:39)
[2022-04-08] MEDS ORDERED: ONDANSETRON HCL INJ 2MG/ML 2ML 2 MG/ML VIAL IV PRN (16:00)
[2022-04-08] MEDS ORDERED: SODIUM CHLORIDE FLUSH 10 ML SYR INJ PRN (16:00)
[2022-04-08] MEDS ORDERED: Morphine 4mg INJECTION 4 MG/ML INJ IV PRN (16:00)
[2022-04-08] MEDS ORDERED: CARVEDILOL 3.125 MG TAB PO SCH (17:00)
[2022-04-08] MEDS: ASPIRIN 81 MG CHEW TAB PO SCH (18:09)
[2022-04-08] MEDS: FAMOTIDINE 20 MG TAB PO SCH (18:09)
[2022-04-08] MEDS: AMIODARONE HCL 200 MG TAB PO SCH (18:09)
[2022-04-08] MEDS: MEMANTINE 10 MG TAB PO SCH (18:09)
[2022-04-08] MEDS: CARVEDILOL 3.125 MG TAB PO SCH (18:09)
[2022-04-08] MEDS: FUROSEMIDE 40 MG TAB PO SCH (18:09)
[2022-04-08] MEDS: LOSARTAN POTASSIUM 100 MG TAB PO SCH (21:43)
[2022-04-09 07:31] LABS: BASOPHILS % 0.2 % (0.0-1.0); EOSINOPHILS % 0.2 % (0.0-6.0); HEMATOCRIT 34.1 % (38.2-49.6); HEMOGLOBIN 11.2 g/dL (14.0-18.0); LYMPHOCYTES # (AUTO) 1.1 (1.0-3.2); LYMPHOCYTES % 13.3 % (18.0-39.1); MEAN CORPUSCULAR HEMOGLOBIN 30.8 pg (28-32); MEAN CORPUSCULAR HGB CONC 32.8 g/dL (31-35); MEAN CORPUSCULAR VOLUME 93.7 fL (81-99); MONOCYTES # (AUTO) 0.7 (0.2-0.8); MONOCYTES % 8.8 % (4.4-11.3); NEUTROPHILS # (AUTO) 6.4 (2.1-6.9); NEUTROPHILS % 77.3 % (38.7-80.0); PLATELET COUNT 125 x10e3/uL (140-360); RED BLOOD COUNT 3.64 x10e6/uL (4.3-5.7); RED CELL DISTRIBUTION WIDTH 14.6 % (11.7-14.4)
[2022-04-09 07:54] LABS: ANION GAP 12.4 mmol/L (8-16); CALCIUM 8.5 mg/dL (8.4-10.2); CREATININE, SERUM 0.91 mg/dL (0.72-1.25); POTASSIUM 3.4 mmol/L (3.5-5.1)
[2022-04-09] MEDS: MEMANTINE 10 MG TAB PO SCH ×2 (10:04→16:16)
[2022-04-09] MEDS: CARVEDILOL 3.125 MG TAB PO SCH ×2 (10:05→16:16)
[2022-04-09 12:02] VITALS: BP 152/73
[2022-04-09] MEDS ORDERED: VERAPAMIL ER120 MG PO (12:06)
[2022-04-09] MEDS ORDERED: FINASTERIDE5 MG PO (12:06)
[2022-04-09] MEDS ORDERED: MULTI-VITAMIN1 EACH PO (12:06)
[2022-04-09] MEDS ORDERED: MILK THISTLE150 MG PO (12:06)
[2022-04-09] MEDS ORDERED: MELATONIN3 MG PO (12:10)
[2022-04-09] MEDS ORDERED: MIRALAX17 GM PO (12:18)
[2022-04-09 12:23] VITALS: BP 152/73
[2022-04-09] MEDS ORDERED: ACETAMINOPHEN/CODEINE 300MG - 30MG TAB PO PRN (13:00)
[2022-04-09 15:28] VITALS: BP 149/65
[2022-04-09] MEDS ORDERED: Morphine 2mg Syringe 2 MG/ML SYR IV PRN (16:00)
[2022-04-09] MEDS: FAMOTIDINE 20 MG TAB PO SCH (16:16)
[2022-04-09 20:00] VITALS: BP 161/76
[2022-04-09] MEDS: LOSARTAN POTASSIUM 100 MG TAB PO SCH (21:00)
[2022-04-10] VITALS: BP 166/70
[2022-04-10 04:00] VITALS: BP 165/83
[2022-04-10 06:11] LABS: BASOPHILS # (AUTO) 0.1 (0.0-0.1); BASOPHILS % 0.7 % (0.0-1.0); EOSINOPHILS # (AUTO) 0.2 (0.0-0.4); EOSINOPHILS % 2.5 % (0.0-6.0); HEMATOCRIT 37.1 % (38.2-49.6); HEMOGLOBIN 11.9 g/dL (14.0-18.0); LYMPHOCYTES # (AUTO) 1.8 (1.0-3.2); LYMPHOCYTES % 25.1 % (18.0-39.1); MEAN CORPUSCULAR HEMOGLOBIN 30.7 pg (28-32); MEAN CORPUSCULAR HGB CONC 32.1 g/dL (31-35); MEAN CORPUSCULAR VOLUME 95.6 fL (81-99); MONOCYTES # (AUTO) 0.7 (0.2-0.8); NEUTROPHILS # (AUTO) 4.4 (2.1-6.9); NEUTROPHILS % 61.4 % (38.7-80.0); PLATELET COUNT 134 x10e3/uL (140-360); RED BLOOD COUNT 3.88 x10e6/uL (4.3-5.7); RED CELL DISTRIBUTION WIDTH 14.7 % (11.7-14.4)
[2022-04-10 06:48] LABS: ANION GAP 15.8 mmol/L (8-16); CALCIUM 8.8 mg/dL (8.4-10.2); CREATININE, SERUM 0.93 mg/dL (0.72-1.25); POTASSIUM 3.8 mmol/L (3.5-5.1)
[2022-04-10] MEDS: FAMOTIDINE 20 MG TAB PO SCH (07:30)
[2022-04-10 08:00] VITALS: BP 165/83
[2022-04-10 08:02] VITALS: BP 157/81
[2022-04-10] MEDS: AMIODARONE HCL 200 MG TAB PO SCH (09:00)
[2022-04-10] MEDS: ASPIRIN 81 MG CHEW TAB PO SCH (09:00)
[2022-04-10] MEDS: MEMANTINE 10 MG TAB PO SCH (09:00)
[2022-04-10] MEDS: FUROSEMIDE 40 MG TAB PO SCH (09:00)
[2022-04-10] MEDS: CARVEDILOL 3.125 MG TAB PO SCH (09:00)
[2022-04-10] MEDS ORDERED: TYLENOL#3 PO (11:36)
== END 2022-04-10 11:45 | disposition home or self-care (01) ==
LOC: ER 12:04 → ERHOLD 15:50 → MED/SURG2 04-09 11:40
PROVIDERS: ADMIT Internal Medicine; ATTEND Internal Medicine
DX: S22.42XA Multiple fractures of ribs, left side, initial encounter for closed fracture (principal); I13.0 Hypertensive heart and chronic kidney disease with heart failure and stage 1 through stage 4 chronic kidney disease, or unspecified chronic kidney disease; I50.23 Acute on chronic systolic (congestive) heart failure; N18.30 Chronic kidney disease, stage 3 unspecified; I48.0 Paroxysmal atrial fibrillation; F03.90 Unspecified dementia, unspecified severity, without behavioral disturbance, psychotic disturbance, mood disturbance, and anxiety; I25.10 Atherosclerotic heart disease of native coronary artery without angina pectoris; S30.811A Abrasion of abdominal wall, initial encounter; H81.09 Meniere's disease, unspecified ear; K74.60 Unspecified cirrhosis of liver; W01.0XXA Fall on same level from slipping, tripping and stumbling without subsequent striking against object, initial encounter; Y93.01 Activity, walking, marching and hiking; Y92.018 Other place in single-family (private) house as the place of occurrence of the external cause; Z95.810 Presence of automatic (implantable) cardiac defibrillator; Z96.652 Presence of left artificial knee joint; Z20.822 Contact with and (suspected) exposure to COVID-19; D64.9 Anemia, unspecified; E78.00 Pure hypercholesterolemia, unspecified; K75.81 Nonalcoholic steatohepatitis (NASH); Z90.49 Acquired absence of other specified parts of digestive tract
CPT/HCPCS: 0223U; 36415 ×3; 70450; 71045 ×2; 71250; 74176; 80048 ×2; 80053; 81001; 82140; 82550; 82553; 84484; 85025 ×3; 85610; 85730; 93005; 94799; 97116; 97161; 97530; 99284; G0378 ×3; J2270 ×2; J2405 ×2